=== PATIENT | female | born 1955 | race African-American/Black ===

== ENCOUNTER 2017-02-22 20:10 | Emergency (ER) | payer MEDICARE, MEDICAID ==
[~2017-02-22] VITALS: Ht 157.5 cm; Wt 105.2 kg
[~2017-02-22 20:10] MED LIST: ALPR0.5T PO; CHOL200027 PO; CYCL10TA2 PO; ESOM40CA PO; EZET10TA3 PO; LEVO75TA5 PO; LISI40TA PO; METF-620 PO; PHEN37.568 PO; POTA10TA12 PO; TRIA1TAB3 PO
--- NOTE | 2017-02-22 21:35 | RAD ---
CT HEAD AND CERVICAL SPINE WO dated 02/22/2017 8:38 PM History: Fell backwards and hit head, and tingling, neck pain Technique: Noncontrast CT imaging was performed of the head and cervical spine. Multiplanar reconstruction images are submitted. Exposure: One or more of the following individualized dose reduction techniques were utilized for this examination: 1. Automated exposure control 2. Adjustment of the mA and/or kV according to patient size 3. Use of iterative reconstruction technique. Head CT Comparison: None Findings: No acute extra-axial or parenchymal hemorrhage is identified. There is no significant intra-axial mass effect, midline shift, or extra-axial fluid collection. The christian-white differentiation of the major vascular territories is preserved. The ventricles, sulci, and cisterns are within normal limits in size and configuration. The mastoid air cells and the visualized paranasal sinuses are aerated. There is no significant focal calvarial abnormality. Impression: 1. No acute intracranial abnormality is identified. Cervical spine CT Comparison: None Findings: No acute cervical spine fracture is identified. Vertebral body stature and AP alignment are within normal limits. Atlanto-axial distance is within normal limits. There is appropriate alignment of lateral masses of C1 relative to C2. Occipital condylar-C1 relationship is maintained. There is advanced degenerative disc disease C3-4 and C5-C6, to a somewhat lesser degree C4-5 and C2-3. There is spondylosis at the same levels. There is likely mild spinal stenosis greatest at C3-4 and C5-C6. There is moderate narrowing of the right C4-5 neural foramen, also moderate severe right and moderate left C5-C6 neural foramina compromise in part from uncovertebral degenerative change. Impression: 1. No acute cervical spine fracture is identified. 2. There is multilevel cervical degenerative disc disease and spondylosis greatest C2-3 to C5-C6, likely at least mild spinal stenosis greatest at C3-4 and C5-C6. There is uncovertebral degenerative change which contributes to neural foramina compromise greatest on the right at C4-5 and bilaterally at C5-C6. Electronically signed by: Alexandre Weathers MD (02/22/2017 9:32 PM)
--- NOTE | 2017-02-22 22:17 | PHYS DOC ---
Past Medical History Past Medical History: Anxiety, Diabetes-Type II, GERD, High Cholesterol, Hypertension, Hypothyroid, Urolithiasis, Other Additional Past Medical Histor: TONYA Past Surgical History: Tubal ligation Additional Past Surgical Histo: THYROIDECTOMY, PARTIAL HYST, HERNIA Alcohol Use: None Drug Use: None Adult General Chief Complaint Chief Complaint: HEADACHE HPI HPI Patient is a 61 year old female with history of diabetes type 2, hypertension, chronic back pain, sciatica, anxiety, who presents with 9 out of 10 posterior head and neck pain that began after she fell. Patient states she was ambulating towards a door when she tripped and fell. Patient denies any loss of consciousness. She states she hit her head on a small chest. Patient denies taking any aspirin or blood thinners. Review of Systems Review of Systems Constitutional: Denies fever or chills [] Eyes: Denies change in visual acuity, redness, or eye pain [] HENT: Denies nasal congestion or sore throat [] Respiratory: Denies cough or shortness of breath [] Cardiovascular: No additional information not addressed in HPI [] GI: Denies abdominal pain, nausea, vomiting, bloody stools or diarrhea [] : Denies dysuria or hematuria [] Musculoskeletal: Posterior neck pain Integument: Denies rash or skin lesions [] Neurologic: Posterior head pain Endocrine: Denies polyuria or polydipsia [] Allergies Allergies Allergies Coded Allergies Type Severity Reaction Last Updated Verified prednisone Adverse Reaction Intermediate 01/19/15 Yes Physical Exam Physical Exam Constitutional: Well developed, well nourished, no acute distress, non-toxic appearance. [] HENT: Normocephalic, atraumatic, bilateral external ears normal, oropharynx moist, no oral exudates, nose normal. [] Eyes: PERRLA, EOMI, conjunctiva normal, no discharge. [] Neck: C-collar present. Normal range of motion, diffuse paraspinal muscle tenderness to posterior bilateral spine, no midline cervical spine tenderness, supple, no stridor. [] Cardiovascular:Heart rate regular rhythm, no murmur [] Lungs & Thorax: Bilateral breath sounds clear to auscultation [] Abdomen: Bowel sounds normal, soft, no tenderness, no masses, no pulsatile masses. [] Skin: Warm, dry, no erythema, no rash. [] Back: No tenderness, no CVA tenderness. [] Extremities: No tenderness, no cyanosis, no clubbing, ROM intact, no edema. [] Neurologic: Alert and oriented X 3, normal motor function, normal sensory function, no focal deficits noted. Cranial nerves II through XII intact Psychologic: Affect normal, judgement normal, mood normal. [] Current Patient Data Vital Signs Vital Signs Date Time Temp Pulse Resp B/P (MAP) Pulse Ox O2 Delivery O2 Flow Rate FiO2 02/22/17 20:42 98.2 90 16 167/92 (117) 95 Room Air 98.2 EKG EKG [] Radiology/Procedures Radiology/Procedures []PROCEDURE: CT HEAD AND CERVICAL SPINE WO CT HEAD AND CERVICAL SPINE WO dated 02/22/2017 8:38 PM History: Fell backwards and hit head, and tingling, neck pain Technique: Noncontrast CT imaging was performed of the head and cervical spine. Multiplanar reconstruction images are submitted. Exposure: One or more of the following individualized dose reduction techniques were utilized for this examination: 1. Automated exposure control 2. Adjustment of the mA and/or kV according to patient size 3. Use of iterative reconstruction technique. Head CT Comparison: None Findings: No acute extra-axial or parenchymal hemorrhage is identified. There is no significant intra-axial mass effect, midline shift, or extra-axial fluid collection. The christian-white differentiation of the major vascular territories is preserved. The ventricles, sulci, and cisterns are within normal limits in size and configuration. The mastoid air cells and the visualized paranasal sinuses are aerated. There is no significant focal calvarial abnormality. Impression: 1. No acute intracranial abnormality is identified. Cervical spine CT Comparison: None Findings: No acute cervical spine fracture is identified. Vertebral body stature and AP alignment are within normal limits. Atlanto-axial distance is within normal limits. There is appropriate alignment of lateral masses of C1 relative to C2. Occipital condylar-C1 relationship is maintained. There is advanced degenerative disc disease C3-4 and C5-C6, to a somewhat lesser degree C4-5 and C2-3. There is spondylosis at the same levels. There is likely mild spinal stenosis greatest at C3-4 and C5-C6. There is moderate narrowing of the right C4-5 neural foramen, also moderate severe right and moderate left C5-C6 neural foramina compromise in part from uncovertebral degenerative change. Impression: 1. No acute cervical spine fracture is identified. 2. There is multilevel cervical degenerative disc disease and spondylosis greatest C2-3 to C5-C6, likely at least mild spinal stenosis greatest at C3-4 and C5-C6. There is uncovertebral degenerative change which contributes to neural foramina compromise greatest on the right at C4-5 Course & Med Decision Making Course & Med Decision Making Pertinent Labs and Imaging studies reviewed. (See chart for details) Patient is in the ED with posterior head pain and neck pain after falling. Does not loss of consciousness. CT of the head is negative for any acute findings. CT of the neck is negative for any acute findings but noted for DJD of the neck. Patient to be discharged with proper return precautions including the need to return to the ED if she has uncontrolled pain, uncontrolled nausea vomiting, excessive sleepiness. She has a PCP and can follow-up as an outpatient. She has pain medicine at home she can use as needed. Dragon Disclaimer Dragon Disclaimer This electronic medical record was generated, in whole or in part, using a voice recognition dictation system. Departure Departure Impression: Primary Impression: Fall from standing Additional Impressions: Closed head injury Acute cervical sprain DJD (degenerative joint disease) of cervical spine Disposition: 01 HOME, SELF-CARE Condition: STABLE Referrals: KARLEE AYALA Jr, MD (PCP) follow up with your own doctor Patient Instructions: Cervical Sprain, Head Injury, Adult Additional Instructions: You were seen after falling. Your CT of the neck and head have no acute findings. Take the prescribed medicines you have at home as needed for pain. Come back to the emergency room if symptoms worsen especially if you have any uncontrolled pain, uncontrolled nausea vomiting, excessive sleepiness, or confusion. Follow-up with your doctor next week. Problem Qualifiers Primary Impression: Fall from standing Encounter type: initial encounter Qualified Codes: W19.XXXA - Unspecified fall, initial encounter Additional Impressions: Closed head injury Encounter type: initial encounter Qualified Codes: S09.90XA - Unspecified injury of head, initial encounter Acute cervical sprain Encounter type: initial encounter Qualified Codes: S13.9XXA - Sprain of joints and ligaments of unspecified parts of neck, initial encounter DJD (degenerative joint disease) of cervical spine Spinal osteoarthritis complication: unspecified spinal osteoarthritis Qualified Codes: M47.812 - Spondylosis without myelopathy or radiculopathy, cervical region MUTRIO OSBORNE [employer] February 22, 2017 22:17
[2017-02-22 22:23] VITALS: BP 170/90
== END 2017-02-22 22:24 | disposition home or self-care (01) ==
LOC: ER 20:10
DX: S13.4XXA Sprain of ligaments of cervical spine, initial encounter (principal); S09.8XXA Other specified injuries of head, initial encounter; M19.90 Unspecified osteoarthritis, unspecified site; E11.9 Type 2 diabetes mellitus without complications; K21.9 Gastro-esophageal reflux disease without esophagitis; E78.00 Pure hypercholesterolemia, unspecified; G89.29 Other chronic pain; I10 Essential (primary) hypertension; E89.0 Postprocedural hypothyroidism; G47.33 Obstructive sleep apnea (adult) (pediatric); Z88.8 Allergy status to other drugs, medicaments and biological substances; W01.0XXA Fall on same level from slipping, tripping and stumbling without subsequent striking against object, initial encounter; Y93.89 Activity, other specified; Y99.8 Other external cause status; Y92.89 Other specified places as the place of occurrence of the external cause
CPT/HCPCS: 70450; 72125; 99284-25

== ENCOUNTER 2017-04-19 12:39 | Observation (INO) | payer MEDICARE, MEDICAID ==
[~2017-04-19] VITALS: Ht 160 cm; Wt 105.4 kg
[~2017-04-19 12:39] MED LIST changes: +EZET10TA18 PO; -EZET10TA3 PO; -PHEN37.568 PO; +PHEN37.598 PO
--- NOTE | 2017-04-19 13:08 | PHYS DOC ---
Past Medical History Past Medical History: Anxiety, Diabetes-Type II, GERD, High Cholesterol, Hypertension, Hypothyroid, Urolithiasis, Other Additional Past Medical Histor: TONYA Past Surgical History: Tubal ligation Additional Past Surgical Histo: THYROIDECTOMY, PARTIAL HYST, HERNIA Alcohol Use: None Drug Use: None Adult General Chief Complaint Chief Complaint: WEAKNESS/GENERALIZED HPI HPI Patient is a 61 year old -[place] female who presents with generalized weakness and right arm pain and weakness. She states on April 12 she had a steroid injection in her right shoulder and right arm and then about 4 days later she started having generalized weakness she becomes very sweaty when she is up walking around and her right arm feels weak. She states nothing she does makes it better or worse. She did try to take a Lasix pill from a friend because she felt like her legs were swollen about the same time that she got her steroid shot. She denies any chest pain shortness of breath. She states she' s been compliant with all of her medications. Review of Systems Review of Systems Constitutional: Denies fever or chills [] Eyes: Denies change in visual acuity, redness, or eye pain [] HENT: Denies nasal congestion or sore throat [] Respiratory: Denies cough or shortness of breath [] Cardiovascular: No additional information not addressed in HPI [] GI: Denies abdominal pain, nausea, vomiting, bloody stools or diarrhea [] : Denies dysuria or hematuria [] Musculoskeletal: Denies back pain or joint pain [] Integument: Denies rash or skin lesions [] Neurologic: Denies headache, focal weakness or sensory changes [] Endocrine: Denies polyuria or polydipsia [] Allergies Allergies Allergies Coded Allergies Type Severity Reaction Last Updated Verified prednisone Adverse Reaction Intermediate 01/19/15 Yes Physical Exam Physical Exam Constitutional: Well developed, well nourished, no acute distress, non-toxic appearance. [] HENT: Normocephalic, atraumatic, bilateral external ears normal, oropharynx moist, no oral exudates, nose normal. [] Eyes: PERRLA, EOMI, conjunctiva normal, no discharge. [] Neck: Normal range of motion, no tenderness, supple, no stridor. [] Cardiovascular:Heart rate regular rhythm, no murmur [] Lungs & Thorax: Bilateral breath sounds clear to auscultation [] Abdomen: Bowel sounds normal, soft, no tenderness, no masses, no pulsatile masses. [] Skin: Warm, dry, no erythema, no rash. [] Back: No tenderness, no CVA tenderness. [] Extremities: No tenderness, no cyanosis, no clubbing, ROM intact, no edema. 5 out of 5 right upper many, limited range of motion on external rotation, radial artery on the right upper extremities 2 out of 4. Neurologic: Alert and oriented X 3, normal motor function, normal sensory function, no focal deficits noted. [] Psychologic: Affect normal, judgement normal, mood normal. [] Current Patient Data Vital Signs Vital Signs Date Time Temp Pulse Resp B/P (MAP) Pulse Ox O2 Delivery O2 Flow Rate FiO2 04/19/17 14:30 62 22 201/97 (131) 97 04/19/17 13:30 Room Air 04/19/17 13:00 98.4 98.4 Lab Values Laboratory Tests Test 04/19/17 13:00 04/19/17 14:20 Urine Collection Type Unknown Urine Color Yellow Urine Clarity Clear Urine pH 7.5 Urine Specific [place] 1.015 Urine Protein Negative mg/dL (NEG-TRACE) Urine Glucose (UA) Negative mg/dL (NEG) Urine Ketones (Stick) Negative mg/dL (NEG) Urine Blood Negative (NEG) Urine Nitrite Negative (NEG) Urine Bilirubin Negative (NEG) Urine Urobilinogen Dipstick 0.2 mg/dL (0.2 mg/dL) Urine Leukocyte Esterase Negative (NEG) Urine RBC 0 /HPF (0-2) Urine WBC Occ /HPF (0-4) Urine Squamous Epithelial Cells Few /LPF Urine Bacteria Few /HPF (0-FEW) White Blood Count 6.9 x10^3/uL (4.0-11.0) Red Blood Count 4.19 x10^6/uL (3.50-5.40) Hemoglobin 13.0 g/dL (12.0-15.5) Hematocrit 39.5 % (36.0-47.0) Mean Corpuscular Volume 94 fL (79-100) Mean Corpuscular Hemoglobin 31 pg (25-35) Mean Corpuscular Hemoglobin Concent 33 g/dL (31-37) Red Cell Distribution Width 13.7 % (11.5-14.5) Platelet Count 287 x10^3/uL (140-400) Neutrophils (%) (Auto) 59 % (31-73) Lymphocytes (%) (Auto) 32 % (24-48) Monocytes (%) (Auto) 6 % (0-9) Eosinophils (%) (Auto) 3 % (0-3) Basophils (%) (Auto) 1 % (0-3) Neutrophils # (Auto) 4.0 x10^3uL (1.8-7.7) Lymphocytes # (Auto) 2.2 x10^3/uL (1.0-4.8) Monocytes # (Auto) 0.4 x10^3/uL (0.0-1.1) Eosinophils # (Auto) 0.2 x10^3/uL (0.0-0.7) Basophils # (Auto) 0.0 x10^3/uL (0.0-0.2) Prothrombin Time 13.4 SEC (11.7-14.0) Prothrombin Time INR 1.1 (0.8-1.1) Sodium Level 142 mmol/L (136-145) Potassium Level 4.1 mmol/L (3.5-5.1) Chloride Level 103 mmol/L (98-107) Carbon Dioxide Level 31 mmol/L (21-32) Anion Gap 8 (6-14) Blood Urea Nitrogen 18 mg/dL (7-20) Creatinine 1.1 mg/dL (0.6-1.0) H Estimated GFR (Cockcroft-Gault) 60.7 Glucose Level 96 mg/dL (70-99) Calcium Level 9.7 mg/dL (8.5-10.1) Magnesium Level 2.0 mg/dL (1.8-2.4) Total Bilirubin 0.6 mg/dL (0.2-1.0) Direct Bilirubin 0.1 mg/dL (0.0-0.2) Aspartate Amino Transferase (AST) 13 U/L (15-37) L Alanine Aminotransferase (ALT) 14 U/L (14-59) Alkaline Phosphatase 74 U/L (46-116) Creatine Kinase 57 U/L (26-192) Creatine Kinase MB (Mass) < 0.5 ng/mL (0.0-3.6) Creatine Kinase MB Relative Index 0.9 % (0-4) Troponin I Quantitative < 0.017 ng/mL (0.000-0.055) EW-Kow-W-Type Natriuretic Peptide 123 pg/mL (0-124) Total Protein 6.7 g/dL (6.4-8.2) Albumin 3.5 g/dL (3.4-5.0) Lipase 392 U/L (73-393) Thyroid Stimulating Hormone (TSH) 1.122 uIU/mL (0.358-3.74) Laboratory Tests 04/19/17 14:20 Laboratory Tests 04/19/17 14:20 EKG EKG EKG shows sinus rhythm rate of [address] elevations, T-wave inversions noted in lead 3, left axis deviation noted, QTC 378 ms, as interpreted by me. Radiology/Procedures Radiology/Procedures [facility] [address] [place] [address] IMAGING REPORT Signed PATIENT: JANESSA VARELA ACCOUNT: [id number] : 1955 LOCATION: ER AGE: 61 SEX: F EXAM STATUS: REG ER ORD. PHYSICIAN: BRENDA GARCIA MD REASON: weakness PROCEDURE: PORTABLE CHEST 1V Janessa Varela. Chest x-ray. 04/19/2017. Time 1319. A single view of the chest was obtained and is compared to an examination 08/03/2015. Indication weakness. Protocol study. Heart size is at the upper limits of normal. There is no congestive heart failure. There is no focal infiltrate significant pleural fluid collection or pneumothorax. Overall a significant change compared to the previous exam is not seen IMPRESSION: No acute process. No significant change DICTATED and SIGNED BY: FATOUMATA MUNOZ MD DATE: 04/19/17 8121 CC: BRENDA GARCIA MD; KARLEE AYALA Jr, MD ~ Impressions: Emergency urgency Utilized weakness Course & Med Decision Making Course & Med Decision Making Pertinent Labs and Imaging studies reviewed. (See chart for details) Patient is outside of any window for her chief complaint of right arm weakness this is been going on for greater than 4 days. I do not appreciate any weakness. It's more limited range of motion that she complains of. She has elevated blood pressure systolics of 201. 2 doses of IV hydralazine is been ordered. Her labs show any acute concerns. She's being admitted to hospitalists for weakness. Interim orders have been written. Critical care time: 35 minutes critical care time was on this patient excluding procedures. Dragon Disclaimer Dragon Disclaimer This electronic medical record was generated, in whole or in part, using a voice recognition dictation system. Departure Departure Impression: Primary Impression: Hypertensive urgency Disposition: ADMITTED INPATIENT Admitting Physician: Other Condition: STABLE Referrals: KARLEE AYALA Jr, MD (PCP) BRENDA GARCIA MD Apr 19, 2017 13:08
[2017-04-19 13:28] LABS: BILIRUBIN,URINE NEGATIVE (NEG); GLUCOSE,URINE NEGATIVE (NEG); NITRITE,URINE NEGATIVE (NEG); PH,URINE 7.5; PROTEIN,URINE NEGATIVE (NEG-TRACE); UROBILINOGEN,URINE 0.2 mg/dL (0.2 mg/dL)
--- NOTE | 2017-04-19 13:54 | RAD ---
Tracee Salas. Chest x-ray. 04/19/2017. Time 1319. A single view of the chest was obtained and is compared to an examination 08/03/2015. Indication weakness. Protocol study. Heart size is at the upper limits of normal. There is no congestive heart failure. There is no focal infiltrate significant pleural fluid collection or pneumothorax. Overall a significant change compared to the previous exam is not seen IMPRESSION: No acute process. No significant change
[2017-04-19 14:02] LABS: BACTERIA,URINE FEW /HPF (0-FEW); RBC,URINE 0 /HPF (0-2); SQUAMOUS EPITHELIAL CELL,UR FEW /LPF; WBC,URINE OCC /HPF (0-4)
[2017-04-19 14:29] LABS: BASO % 1 % (0-3); EOS % 3 % (0-3); HEMATOCRIT 39.5 % (36.0-47.0); LYMPH # 2.2 x10^3/uL (1.0-4.8); LYMPH % 32 % (24-48); MEAN CORPUSCULAR HEMOGLOBIN 31 pg (25-35); MEAN CORPUSCULAR HGB CONC 33 g/dL (31-37); MEAN CORPUSCULAR VOLUME 94 fL (79-100); MONO % 6 % (0-9); NEUT % 59 % (31-73); PLATELET COUNT 287 x10^3/uL (140-400); RED BLOOD COUNT 4.19 x10^6/uL (3.50-5.40); RED CELL DISTRIBUTION WIDTH 13.7 % (11.5-14.5); WHITE BLOOD COUNT 6.9 x10^3/uL (4.0-11.0)
[2017-04-19 14:38] LABS: INR 1.1 (0.8-1.1); PROTHROMBIN TIME PATIENT 13.4 SEC (11.7-14.0)
[2017-04-19 14:47] LABS: CALCIUM 9.7 mg/dL (8.5-10.1); CREATININE 1.1 mg/dL (0.6-1.0); GFR 60.7; POTASSIUM 4.1 mmol/L (3.5-5.1)
[2017-04-19 14:52] LABS: ALBUMIN 3.5 g/dL (3.4-5.0); DIRECT BILIRUBIN 0.1 mg/dL (0.0-0.2); TOTAL BILIRUBIN 0.6 mg/dL (0.2-1.0); TOTAL PROTEIN 6.7 g/dL (6.4-8.2)
[2017-04-19 14:59] LABS: CREATINE KINASE 57 U/L (26-192)
[2017-04-19 15:00] LABS: CKMB MASS < 0.5 ng/mL (0.0-3.6)
--- NOTE | 2017-04-19 15:21 | EKG ---
[facility] [address] [place] [address] Test Date: 2017-04-19 Test Time: 13:11:17 Pat Name: JANESSA VARELA Department: Room: Gender: F Harness Inspector: : 1955 Requested By: BRENDA GARCIA Order Number: [id number] Reading MD: Measurements Intervals [place] Rate: 70 P: 48 NM: 164 QRS: -14 QRSD: 78 T: -1 QT: 348 QTc: 378 Interpretive Statements SINUS RHYTHM LEFTWARD AXIS QRS(T) CONTOUR ABNORMALITY CANNOT RULE OUT ANTEROSEPTAL MYOCARDIAL DAMAGE RI6.01 Unconfirmed report No previous ECG available for comparison
[2017-04-19] MEDS: hydrALAZINE 20 MG/ML VIAL. IVP ONE ×2 (15:29→16:30)
--- NOTE | 2017-04-19 15:43 | RAD ---
Indication right arm weakness. Noncontrast images of the head were obtained. Note is made of a previous examination just under 2 months ago. The calvarium appears unremarkable. The visualized paranasal sinuses appear unremarkable. There is no subdural or epidural hematoma. There is no mass or midline shift. No hemorrhage is seen. Acute finding is not apparent. A significant change compared to the previous exam is not seen. IMPRESSION: No acute finding seen at [facility] Compliance Statement: One or more of the following individualized dose reduction techniques were utilized for this examination: 1. Automated exposure control 2. Adjustment of the mA and/or kV according to patient size 3. Use of iterative reconstruction technique
[2017-04-19] MEDS ORDERED: hydrALAZINE 20 MG/ML VIAL. IVP ONE (15:45)
[2017-04-19] MEDS ORDERED: ONDANSETRON PF 4 MG/2 ML VIAL. IV PRN (16:15)
[2017-04-19 17:23] VITALS: BP 188/92
[2017-04-19 17:24] VITALS: BP 188/92
[2017-04-19] MEDS ORDERED: DEXTROSE 50% 25 GM / 50ML DISP.SYRIN. IV PRN (17:45)
[2017-04-19] MEDS ORDERED: ALPRAZolam 0.5 MG TABLET PO PRN (17:45)
[2017-04-19] MEDS ORDERED: CYCLOBENZAPRINE 10 MG TABLET. PO PRN (17:45)
[2017-04-19] MEDS: METHYL SALICYLATE/MENTHOL TOPICAL OINTMENT 29GM TUBE. TP SCH ×2 (17:52→21:44)
[2017-04-19] MEDS: amLODIPine BESYLATE 5 MG TABLET PO SCH (17:52)
--- NOTE | 2017-04-19 19:01 | HP ---
ADMIT DATE: 04/19/2017 CHIEF COMPLAINT: Arm pain, hypertensive urgency. HISTORY OF PRESENT ILLNESS: The patient is a 61-year-old -[place] woman with past medical history of hypertension, diabetes, osteoarthritis for which she is receiving injections and pain medications from the pain clinic. She presented to the Emergency Room today with right upper extremity pain in her proximal arm after she had received an injection into her shoulder joint just a couple of days ago. Initially pain was actually well controlled now. Her arm is quite achy. She also had noted some sweating at home with relatively little activity and she is not feeling well in general and decided to come to the Emergency Room. Here, no local findings were evident. However, her blood pressure initially was over 200 with the difficulty in controlling, the patient was admitted. PAST MEDICAL HISTORY: Diabetes, hypertension, hyperlipidemia, hypothyroidism, anxiety and GERD. PAST SURGICAL HISTORY: She is status post thyroidectomy and hysterectomy. SOCIAL HISTORY: No toxic habits, lives with her family. FAMILY HISTORY: Positive for CAD. ALLERGIES: PREDNISONE. MEDICATIONS: MAR reconciled with home medications. REVIEW OF SYSTEMS: Positive as per HPI. She denies any fevers, chills, any other focal symptoms save for the arm pain. PHYSICAL EXAMINATION: VITAL SIGNS: From today show a blood pressure of initially at 211/102, currently at 180/92. GENERAL: This is a morbidly obese -[place] woman, alert and oriented, no acute distress. HEENT: Shows no scleral icterus. Oral mucosa is pink and moist. NECK: Supple. LUNGS: Clear to auscultation bilaterally. HEART: Has regular rate and rhythm. ABDOMEN: Has positive bowel sounds, soft, nontender. EXTREMITIES: Show no edema. SKIN: Warm, soft and dry without any rash. NEUROLOGIC: She appears grossly intact. LABORATORY DATA: CBC with a WBC of 6.9, hemoglobin 13, platelets of 287. Chemistries with a BUN and creatinine of 18 and 1.1, which is essentially her baseline. Electrolytes within normal limits. LFTs normal, cardiac enzymes normal. IMAGING: Head CT in the Emergency Room shows no acute findings noted the chest x-ray. ASSESSMENT AND PLAN: The patient is a 61-year-old woman, who presents with arm pain after a steroid injection. I suspect that this is neuropathy from the injection. We will treat with BenGay and her home medications for pain. More importantly is the incidental finding of hypertensive urgency. She has been given hydralazine in the Emergency Room with some improvement. We will start her on Norvasc tonight. Continue the IV hydralazine p.r.n. and continue home medications including lisinopril. She does have diabetes and is on medication. Blood sugar in the Emergency Room was actually within normal limits. We will obtain insulin sliding scale, monitoring in addition to her home medications. For other medical issues including gastroesophageal reflux disease and hypothyroidism, we will continue her home medications. Should prolonged hospitalization be required, we will start her on Lovenox tomorrow2 for DVT prophylaxis. GEOVANI YUAN MD DR: UR/nts JOB#: [id number] / [id number] ASHLY
[2017-04-19 19:15] VITALS: BP 181/89
[2017-04-19] MEDS ORDERED: METF500T4 PO (21:47)
[2017-04-19] MEDS ORDERED: hydrALAZINE 20 MG/ML VIAL. IVP PRN (22:15)
[2017-04-19 23:15] VITALS: BP 151/82
--- NOTE | 2017-04-20 01:08 | ACF ---
Admission Forms Criteria HYPERTENSION Clinical Indications for Admission to Inpatient Care ( Place "X" for any and all applicable criteria): Admission is indicated for 1 or more of the following(1)(2)(3)(4)(5)(6)(7)(8)(9) (10): [ ]I. Hypertensive emergency, with evidence of acute and progressing target organ disease as indicated by 1 or more of the following: [ ]a) Hypertensive encephalopathy (eg, confusion, altered mental status) [ ]b) Cerebral infarction [ ]c) Intracranial hemorrhage [ ]d) Myocardial ischemia or infarction [ ]e) Heart failure (eg. Pulmonary edema) [ ]f) Aortic dissection [ ]g) Increased creatinine (new) with reduction of more than 50% in estimated glomerular filtration rate from baseline [ ]h) Seizure [ ]i) Papilledema [ ]j) Retinal hemorrhage [ ]k) Microangiopathic hemolytic anemia [ ]l) Other significant finding secondary to hypertension [ ]II. Adrenergic or sympathomimetic crisis (eg, severe hypertension due to pheochromocytoma crisis, cocaine or amphetamine intoxication, or clonidine withdrawal) [X]III. Severe hypertension (SBP greater than 180 mmHg or DBP greater than 110 mmHg or greater than the 95th percentile for age, gender, and height in pediatric patients) that cannot be controlled (eg, to SBP less than 160 mmHg and DBP less than 100 mmHg in adults) by treatment with oral medication in emergency department or observation care Extended stay beyond goal length of stay may be needed for(11)(12)(13): [ ]a) Persistent hypertensive encephalopathy [ ]b) Continuation of pulmonary edema [ ]c) Recurring or persistent severe hypertension [ ]d) Target organ damage (eg, angina, stroke, aortic dissection) The original [employer] content created by [employer] has been revised. The portions of the content which have been revised are identified through the use of italic text, and [employer] [facility] has neither reviewed nor approved the modified material. All other unmodified content is copyright [employer] Please see references footnoted in the original [employer] [facility] edition 2014 Admission Criteria Met?: Yes CRUZ ARANA Apr 20, 2017 01:08
[2017-04-20] MEDS ORDERED: ACETAMINOPHEN 325 MG TABLET. PO PRN (01:15)
[2017-04-20 03:10] VITALS: BP 148/80
[2017-04-20 05:58] LABS: BASO # 0.1 x10^3/uL (0.0-0.2); BASO % 1 % (0-3); EOS % 2 % (0-3); HEMATOCRIT 40.1 % (36.0-47.0); HEMOGLOBIN 13.2 g/dL (12.0-15.5); LYMPH # 3.2 x10^3/uL (1.0-4.8); LYMPH % 38 % (24-48); MEAN CORPUSCULAR HEMOGLOBIN 31 pg (25-35); MEAN CORPUSCULAR HGB CONC 33 g/dL (31-37); MEAN CORPUSCULAR VOLUME 94 fL (79-100); MONO % 7 % (0-9); NEUT % 53 % (31-73); PLATELET COUNT 325 x10^3/uL (140-400); RED BLOOD COUNT 4.27 x10^6/uL (3.50-5.40); RED CELL DISTRIBUTION WIDTH 14.1 % (11.5-14.5); WHITE BLOOD COUNT 8.4 x10^3/uL (4.0-11.0)
[2017-04-20 06:46] LABS: CALCIUM 8.8 mg/dL (8.5-10.1); GFR 67.8; POTASSIUM 3.7 mmol/L (3.5-5.1)
[2017-04-20] MEDS ORDERED: LEVOTHYROXINE 75 MCG TABLET PO SCH (07:30)
[2017-04-20] MEDS ORDERED: PANTOPRAZOLE 40 MG TABLET.DR. PO SCH (07:30)
[2017-04-20 07:36] VITALS: BP 119/73
[2017-04-20] MEDS ORDERED: metFORMIN 500 MG TABLET PO SCH (08:00)
[2017-04-20] MEDS: INSULIN ASPART 300 UNITS/3 ML INSULN.PEN SQ SCH ×2 (08:00→12:14)
[2017-04-20] MEDS ORDERED: LISINOPRIL 40 MG TABLET. PO SCH (09:00)
[2017-04-20] MEDS ORDERED: EZETIMIBE 10 MG TABLET. PO SCH (09:00)
[2017-04-20] MEDS ORDERED: TRIAMTERENE/HCTZ 37.5/25MG TABLET. PO SCH (09:00)
[2017-04-20] MEDS ORDERED: POTASSIUM CHLORIDE 10 MEQ TABLET.ER. PO SCH (09:00)
[2017-04-20] MEDS ORDERED: CHOLECALCIFEROL (VITAMIN D3) 1,000 UNIT TABLET PO SCH (09:00)
[2017-04-20] MEDS: amLODIPine BESYLATE 5 MG TABLET PO SCH (09:06)
[2017-04-20] MEDS: METHYL SALICYLATE/MENTHOL TOPICAL OINTMENT 29GM TUBE. TP SCH ×2 (09:08→13:26)
[2017-04-20 11:35] VITALS: BP 146/86
[2017-04-20 13:18] LABS: % EOS 2 % (0-5)
[2017-04-20 13:19] LABS: PLT ESTIMATE ADEQUATE (ADEQUATE)
[2017-04-20 13:30] VITALS: BP 153/80
--- NOTE | 2017-04-20 13:43 | PDOC ---
GEOVANI YUAN MD Apr 20, 2017 13:43
[2017-04-20] MEDS ORDERED: AMLO5TAB2 PO (15:25)
[2017-04-20 15:34] VITALS: BP 137/87
--- NOTE | 2017-04-21 00:46 | DS ---
DATE OF DISCHARGE: 04/20/2017 CHIEF COMPLAINT: Arm pain, hypertensive urgency. HOSPITAL COURSE: This is a 61-year-old -[place] woman with past medical history of hypertension, diabetes, osteoarthritis, who presented to the Emergency Room with arm pain. She had had an injection to her right shoulder for osteoarthritis and a couple of days later developed right upper arm pain. In the Emergency Room, she was found with hypertensive urgency and promptly admitted. Blood pressure actually was brought under control fairly easily with her home medications and the addition of Norvasc. Her arm pain was addressed with BenGay and her home medications with good result. She was ready for discharge on the . PHYSICAL EXAMINATION: VITAL SIGNS: Blood pressure of 137/87, heart rate at 80, respiratory rate at 18. She is afebrile. GENERAL: This is a morbidly obese, 61-year-old -[place] woman, alert and oriented, in no acute distress. LUNGS: Clear. HEART: Regular rate and rhythm. ABDOMEN: Has positive bowel sounds, soft, nontender. EXTREMITIES: Show no edema. DISCHARGE DATE: 04/20/2017. DISCHARGE DIAGNOSES: Arm pain and hypertensives urgency. DISCHARGE DISPOSITION: To home. DISCHARGE CONDITION: Improved. DISCHARGE MEDICATIONS: Please refer to MAR. DISCHARGE INSTRUCTIONS: The patient will follow up with her primary care physician in 1-2 weeks. GEOVANI YUAN MD DR: UR/nts JOB#: [id number] / [id number] KARLEE Bae MD
== END 2017-04-20 16:00 | disposition home or self-care (01) ==
LOC: ER 12:39 → 6 SOUTH 14:51
PROVIDERS: ADMIT Internal Medicine Hematology & Oncology; ATTEND Internal Medicine Hematology & Oncology
DX: M79.601 Pain in right arm (principal); I16.0 Hypertensive urgency; E11.9 Type 2 diabetes mellitus without complications; E78.00 Pure hypercholesterolemia, unspecified; E89.0 Postprocedural hypothyroidism; G47.33 Obstructive sleep apnea (adult) (pediatric); I10 Essential (primary) hypertension; K21.9 Gastro-esophageal reflux disease without esophagitis; M19.90 Unspecified osteoarthritis, unspecified site; Z87.442 Personal history of urinary calculi
CPT/HCPCS: 36415; 70450; 71010; 80048; 80076; 81001; 82553; 82962; 83690; 83735; 83880; 84443; 84484; 85007; 85027; 85610; 93005; 96374; 99285; G0378; J0360; G0379; A6539

== ENCOUNTER 2018-12-17 13:29 | Emergency (ER) | payer MEDICARE, MEDICAID ==
[~2018-12-17] VITALS: Ht 160 cm; Wt 105.2 kg
[~2018-12-17 13:29] MED LIST changes: +AMLO5TAB10 PO; +LISI-130 PO; -LISI40TA PO; -METF-620 PO; +METF10007 PO; +METF500T16 PO
[2018-12-17 15:20] VITALS: BP 134/70
--- NOTE | 2018-12-17 15:38 | PHYS DOC ---
Past Medical History Past Medical History: Anxiety, Arthritis, Diabetes-Type II, GERD, High Cholesterol, Hypertension, Hypothyroid, Urolithiasis, Other Additional Past Medical Histor: TONYA-uses CPAP, ciatica Past Surgical History: Cholecystectomy, Tubal ligation Additional Past Surgical Histo: THYROIDECTOMY, PARTIAL HYST, HERNIA Alcohol Use: None Drug Use: None Adult General Chief Complaint Chief Complaint: ALLERGIC REACTION HPI HPI Patient is a 63 year old went to see her doctor today for acid reflux problem and for her blood pressure problem. Patient is on two different medications for here blood pressure. Patient was given a GI COCKTAIL IN THE CLINIC AND .2 MG CLONIDINE PO. Patient has never taken CLONIDINE IN THE PAST. Patient was allowed to stay in the clinic for observation. Her doctor went to lunch but when she came back , found patient to be very drownsy so she was told to come to the ER FOR EVALUATION. She denies any trouble breathing, no trouble swallowing, no trouble TALKING, NO RASH OR ITCHING. Patient denies any chest pain, no abdominal pain, no nausea vomiting. Review of Systems Review of Systems Constitutional: Denies fever or chills [] Eyes: Denies change in visual acuity, redness, or eye pain [] HENT: Denies nasal congestion or sore throat [] Respiratory: Denies cough or shortness of breath [] Cardiovascular: No additional information not addressed in HPI [] GI: Denies abdominal pain, nausea, vomiting, bloody stools or diarrhea [] : Denies dysuria or hematuria [] Musculoskeletal: Denies back pain or joint pain [] Integument: Denies rash or skin lesions [] Neurologic: Denies headache, focal weakness or sensory changes. FEELING VERY DROWNSY. Endocrine: Denies polyuria or polydipsia [] All other systems were reviewed and found to be within normal limits, except as documented in this note. Allergies Allergies Allergies Coded Allergies Type Severity Reaction Last Updated Verified prednisone Adverse Reaction Intermediate 01/19/15 Yes Physical Exam Physical Exam Constitutional: Well developed, well nourished, no acute distress, non-toxic appearance. [] HENT: Normocephalic, atraumatic, bilateral external ears normal, oropharynx moist, no oral exudates, nose normal. [] Eyes: PERRLA, EOMI, conjunctiva normal, no discharge. [] Neck: Normal range of motion, no tenderness, supple, no stridor. [] Cardiovascular:Heart rate regular rhythm, no murmur [] Lungs & Thorax: Bilateral breath sounds clear to auscultation [] Abdomen: Bowel sounds normal, soft, no tenderness, no masses, no pulsatile masses. [] Skin: Warm, dry, no erythema, no rash. [] Back: No tenderness, no CVA tenderness. [] Extremities: No tenderness, no cyanosis, no clubbing, ROM intact, no edema. [] Neurologic: Alert and oriented X 3, normal motor function, normal sensory function, no focal deficits noted. [] Psychologic: Affect normal, judgement normal, mood normal. [] Current Patient Data Vital Signs Vital Signs Date Time Temp Pulse Resp B/P (MAP) Pulse Ox O2 Delivery O2 Flow Rate FiO2 12/17/18 15:20 74 134/70 (91) 98 Room Air 12/17/18 13:51 98.2 18 98.2 EKG EKG [] Radiology/Procedures Radiology/Procedures [] Course & Med Decision Making Course & Med Decision Making Pertinent Labs and Imaging studies reviewed. (See chart for details) Patient was observed in the ER for 2.5 hours, she was doing better, her blood pressure was normalized. Clonidine caused her to be drownzy. She was told to stop taking clonidine. She will need to call her doctor today for a different blood pressure medication. Dragon Disclaimer Dragon Disclaimer This electronic medical record was generated, in whole or in part, using a voice recognition dictation system. Departure Departure Impression: Primary Impression: Medication adverse effect Disposition: HOME, SELF-CARE Condition: IMPROVED Referrals: UNKNOWN PCP NAME (PCP) please call your doctor today so that you can have another medication for your blood pressure. DO NOT TAKE CLONIDINE ANYMORE. Patient Instructions: Drug Allergy CINTIA CURIEL DO Dec 17, 2018 15:38
== END 2018-12-17 15:59 | disposition home or self-care (01) ==
LOC: ER 13:29
DX: K21.9 Gastro-esophageal reflux disease without esophagitis (principal); I10 Essential (primary) hypertension; F41.9 Anxiety disorder, unspecified; T46.5X5A Adverse effect of other antihypertensive drugs, initial encounter; M19.90 Unspecified osteoarthritis, unspecified site; E11.9 Type 2 diabetes mellitus without complications; E78.00 Pure hypercholesterolemia, unspecified; G47.33 Obstructive sleep apnea (adult) (pediatric); Z90.49 Acquired absence of other specified parts of digestive tract; Z98.51 Tubal ligation status; E89.0 Postprocedural hypothyroidism; Z88.8 Allergy status to other drugs, medicaments and biological substances; Y92.89 Other specified places as the place of occurrence of the external cause
CPT/HCPCS: 99283

== ENCOUNTER 2019-10-25 07:38 | Emergency (ER) | payer MEDICARE, MEDICAID ==
[~2019-10-25] VITALS: Ht 160 cm; Wt 115.9 kg
[~2019-10-25 07:38] MED LIST changes: +AMLO10TA8 PO; -EZET10TA18 PO; +EZET10TA20 PO
--- NOTE | 2019-10-25 08:18 | RAD ---
PORTABLE CHEST 1V History: Chest pain hypertension. Headache. Comparison: April 17, 2019 Findings: No consolidation or pleural effusion. Normal heart size. No pneumothorax. Impression: 1. No acute cardiopulmonary process. Electronically signed by: Pal Dumont DO (10/25/2019 8:16 AM) [facility]
[2019-10-25 08:19] LABS: BASO % 1 % (0-3); EOS # 0.2 x10^3/uL (0.0-0.7); EOS % 4 % (0-3); HEMATOCRIT 36.3 % (36.0-47.0); HEMOGLOBIN 12.4 g/dL (12.0-15.5); LYMPH % 36 % (24-48); MEAN CORPUSCULAR HEMOGLOBIN 31 pg (25-35); MEAN CORPUSCULAR HGB CONC 34 g/dL (31-37); MEAN CORPUSCULAR VOLUME 92 fL (79-100); MONO # 0.4 x10^3/uL (0.0-1.1); MONO % 7 % (0-9); NEUT % 53 % (31-73); PLATELET COUNT 271 x10^3/uL (140-400); RED BLOOD COUNT 3.94 x10^6/uL (3.50-5.40); RED CELL DISTRIBUTION WIDTH 13.4 % (11.5-14.5); WHITE BLOOD COUNT 5.6 x10^3/uL (4.0-11.0)
[2019-10-25 08:21] LABS: CALCIUM 9.2 mg/dL (8.5-10.1); GFR 67.1; POTASSIUM 3.5 mmol/L (3.5-5.1)
[2019-10-25 08:28] LABS: ALBUMIN 3.3 g/dL (3.4-5.0); MAGNESIUM 1.6 mg/dL (1.8-2.4); PROTHROMBIN TIME PATIENT 13.7 SEC (11.7-14.0); TOTAL BILIRUBIN 0.8 mg/dL (0.2-1.0); TOTAL PROTEIN 6.7 g/dL (6.4-8.2)
--- NOTE | 2019-10-25 08:36 | RAD ---
CT HEAD WO CONTRAST History: Headache Comparison: April 19, 2017 Technique: Noncontrast CT imaging was performed of the head. Exposure: One or more of the following individualized dose reduction techniques were utilized for this examination: 1. Automated exposure control 2. Adjustment of the mA and/or kV according to patient size 3. Use of iterative reconstruction technique. Findings: No acute extra-axial or parenchymal hemorrhage is identified. There is no significant intra-axial mass effect, midline shift, or extra-axial fluid collection. The christian-white differentiation of the major vascular territories is preserved. The ventricles, sulci, and cisterns are within normal limits in size and configuration. The mastoid air cells and the visualized paranasal sinuses are aerated. No acute calvarial abnormality is identified. Impression: 1. No acute intracranial abnormality is identified. Electronically signed by: Alexandre Weathers MD (10/25/2019 8:33 AM) [facility]
--- NOTE | 2019-10-25 09:03 | PHYS DOC ---
Past Medical History Past Medical History: Anxiety, Arthritis, Diabetes-Type II, GERD, High Cholesterol, Hypertension, Hypothyroid, Urolithiasis, Other Additional Past Medical Histor: TONYA-uses CPAP, ciatica, CHRONIC BACK PAIN Past Surgical History: Cholecystectomy, Tubal ligation Additional Past Surgical Histo: THYROIDECTOMY, PARTIAL HYST, HERNIA Alcohol Use: None Drug Use: None Adult General Chief Complaint Chief Complaint: CHEST PAIN HPI HPI Patient is a 64 year old female with history of hypertension, dyslipidemia, hypothyroidism, diabetes mellitus, anxiety, chronic back pain who presents via EMS with complaint of chest pain and headache. Patient complaining of in termittent episodes of substernal chest pain for the last 4 days that usually lasts for a few minutes and happens 3 or 4 times a day as a sharp pain with radiation to her shoulders and back and associated with shortness of breath without palpitation and nausea and dizziness. Patient rated her pain 8/10 and states she had the same chest pain previously. Patient states sometimes the pain getting worse with eating. Patient also of constant right-sided headache for the last 2 days as a burning pain without nausea, focal neuro deficit, double vision or blurred vision, head injury. Patient rated her headache 9/10 and states she took her hydrocodone and her pain getting better and coming back again. Review of Systems Review of Systems Constitutional: Denies fever or chills [] Eyes: Denies change in visual acuity, redness, or eye pain [] HENT: Denies nasal congestion or sore throat [] Respiratory: Denies cough or shortness of breath [] Cardiovascular: No additional information not addressed in HPI [] GI: Denies abdominal pain, nausea, vomiting, bloody stools or diarrhea [] : Denies dysuria or hematuria [] Musculoskeletal: Denies back pain or joint pain [] Integument: Denies rash or skin lesions [] Neurologic: Denies headache, focal weakness or sensory changes [] Endocrine: Denies polyuria or polydipsia [] All other systems were reviewed and found to be within normal limits, except as documented in this note. Current Medications Current Medications Current Medications Medications (Trade) Dose Ordered Sig/Erika Start Time Stop Time Status Last Admin Dose Admin Magnesium Oxide (Magnesium Oxide) 400 mg 1X ONCE 10/25/19 09:45 10/25/19 09:46 DC 10/25/19 09:26 400 MG Morphine Sulfate (Morphine Sulfate) 4 mg 1X ONCE 10/25/19 09:15 10/25/19 08:59 DC Allergies Allergies Allergies Coded Allergies Type Severity Reaction Last Updated Verified No Known Medication Allergies Allergy Unknown 10/25/19 Yes prednisone Adverse Reaction Intermediate 01/19/15 Yes Physical Exam Physical Exam Constitutional: Well developed, well nourished, mild distress, non-toxic appearance. [] HENT: Normocephalic, atraumatic. Eyes: PERRLA, EOMI, conjunctiva normal, no discharge. [] Neck: Normal range of motion, no tenderness, supple, no stridor. [] Cardiovascular:Heart rate regular rhythm, no murmur [] Lungs & Thorax: Bilateral breath sounds clear to auscultation, reproducible substernal pain [] Abdomen: Bowel sounds normal, soft, no tenderness, no masses, no pulsatile masses. [] Skin: Warm, dry, no erythema, no rash. [] Back: No tenderness, no CVA tenderness. [] Extremities: No tenderness, no cyanosis, no clubbing, ROM intact, no edema. [] Neurologic: Alert and oriented X 3, no focal deficits noted. [] Psychologic: Affect normal, judgement normal, mood normal. [] Current Patient Data Vital Signs Vital Signs Date Time Temp Pulse Resp B/P (MAP) Pulse Ox O2 Delivery O2 Flow Rate FiO2 10/25/19 09:40 65 18 133/73 (93) 98 Room Air 10/25/19 07:52 97.6 97.6 Lab Values Laboratory Tests Test 10/25/19 08:03 White Blood Count 5.6 x10^3/uL (4.0-11.0) Red Blood Count 3.94 x10^6/uL (3.50-5.40) Hemoglobin 12.4 g/dL (12.0-15.5) Hematocrit 36.3 % (36.0-47.0) Mean Corpuscular Volume 92 fL (79-100) Mean Corpuscular Hemoglobin 31 pg (25-35) Mean Corpuscular Hemoglobin Concent 34 g/dL (31-37) Red Cell Distribution Width 13.4 % (11.5-14.5) Platelet Count 271 x10^3/uL (140-400) Neutrophils (%) (Auto) 53 % (31-73) Lymphocytes (%) (Auto) 36 % (24-48) Monocytes (%) (Auto) 7 % (0-9) Eosinophils (%) (Auto) 4 % (0-3) H Basophils (%) (Auto) 1 % (0-3) Neutrophils # (Auto) 3.0 x10^3/uL (1.8-7.7) Lymphocytes # (Auto) 2.0 x10^3/uL (1.0-4.8) Monocytes # (Auto) 0.4 x10^3/uL (0.0-1.1) Eosinophils # (Auto) 0.2 x10^3/uL (0.0-0.7) Basophils # (Auto) 0.0 x10^3/uL (0.0-0.2) Prothrombin Time 13.7 SEC (11.7-14.0) Prothrombin Time INR 1.1 (0.8-1.1) Sodium Level 139 mmol/L (136-145) Potassium Level 3.5 mmol/L (3.5-5.1) Chloride Level 101 mmol/L (98-107) Carbon Dioxide Level 30 mmol/L (21-32) Anion Gap 8 (6-14) Blood Urea Nitrogen 12 mg/dL (7-20) Creatinine 1.0 mg/dL (0.6-1.0) Estimated GFR (Cockcroft-Gault) 67.1 BUN/Creatinine Ratio 12 (6-20) Glucose Level 103 mg/dL (70-99) H Calcium Level 9.2 mg/dL (8.5-10.1) Magnesium Level 1.6 mg/dL (1.8-2.4) L Total Bilirubin 0.8 mg/dL (0.2-1.0) Aspartate Amino Transferase (AST) 9 U/L (15-37) L Alanine Aminotransferase (ALT) 6 U/L (14-59) L Alkaline Phosphatase 69 U/L (46-116) Creatine Kinase 35 U/L (26-192) Troponin I Quantitative < 0.017 ng/mL (0.000-0.055) EG-Xlm-R-Type Natriuretic Peptide 54 pg/mL (0-124) Total Protein 6.7 g/dL (6.4-8.2) Albumin 3.3 g/dL (3.4-5.0) L Albumin/Globulin Ratio 1.0 (1.0-1.7) Lipase 100 U/L (73-393) Laboratory Tests 10/25/19 08:03 Laboratory Tests 10/25/19 08:03 EKG EKG EKG interpreted by me. EKG at 0 742 showed normal sinus rhythm at rate of 68, left fourth axis, T-wave abnormality inferiorly, no acute ST and T-wave elevation. Radiology/Procedures Radiology/[place] [id number] IMAGING REPORT Signed PATIENT: JANESSA VARELA ACCOUNT: [id number] : 1955 LOCATION: ER AGE: 64 SEX: F EXAM STATUS: PRE ER ORD. PHYSICIAN: LYNNE ANDERSON MD REASON: chest pain, HIGH BLOOD PRESSURE AND HEADACHE PROCEDURE: PORTABLE CHEST 1V PORTABLE CHEST 1V History: Chest pain hypertension. Headache. Comparison: April 17, 2019 Findings: No consolidation or pleural effusion. Normal heart size. No pneumothorax. Impression: 1. No acute cardiopulmonary process. Electronically signed by: Pal Dumont DO (10/25/2019 8:16 AM) [facility] DICTATED and SIGNED BY: PAL DUMONT DO DATE: 10/25/[address] [place] [address] [id number] IMAGING REPORT Signed PATIENT: JANESSA VARELA ACCOUNT: [id number] : 1955 LOCATION: ER AGE: 64 SEX: F EXAM STATUS: PRE ER ORD. PHYSICIAN: LYNNE ANDERSON MD REASON: headache PROCEDURE: CT HEAD WO CONTRAST CT HEAD WO CONTRAST History: Headache Comparison: April 19, 2017 Technique: Noncontrast CT imaging was performed of the head. Exposure: One or more of the following individualized dose reduction techniques were utilized for this examination: 1. Automated exposure control 2. Adjustment of the mA and/or kV according to patient size 3. Use of iterative reconstruction technique. Findings: No acute extra-axial or parenchymal hemorrhage is identified. There is no significant intra-axial mass effect, midline shift, or extra-axial fluid collection. The christian-white differentiation of the major vascular territories is preserved. The ventricles, sulci, and cisterns are within normal limits in size and configuration. The mastoid air cells and the visualized paranasal sinuses are aerated. No acute calvarial abnormality is identified. Impression: 1. No acute intracranial abnormality is identified. Electronically signed by: Prashant Weathers MD (10/25/2019 8:33 AM) [facility] DICTATED and SIGNED BY: PRASHANT WEATHERS MD DATE: 10/25/19 0833 Course & Med Decision Making Course & Med Decision Making Pertinent Labs and Imaging studies reviewed. (See chart for details) Evaluation of patient in ER showed 64-year-old male patient with complaining of several days of chest pain and headache. Patient had unremarkable physical exam and labs and felt better with treatment in ER. Patient ambulated without pro blem. I've spoken with the patient and/or caregivers. I've explained the patient's condition, diagnosis and treatment plan based on information available to me at this time. I've answered the patient's and/or caregivers questions and addressed any concerns. The patient and/or caregivers have a good understanding the patient's diagnosis, condition and treatment plan as can be expected at this point. Vital signs have been stabilized. The patient's condition is stable for discharge from the emergency department. The patient will pursue further outpatient evaluation with her primary care provider or other designated consulting physician as outlined in the discharge instructions. Patient and/or caregivers are agreeable to this plan of care and follow-up instructions have been explained in detail. The patient and/or caregivers have received these instructions in written format and expressed understanding of these discharge instructions. The patient and her caregivers are aware that if any significant change in condition or worsening of symptoms should prompt him to immediately return to this of the closest emergency department. If an emergent department is not readily available I would encourage him to call 911. [place] Disclaimer Mindion Disclaimer This electronic medical record was generated, in whole or in part, using a voice recognition dictation system. Departure Departure Impression: Primary Impression: Musculoskeletal chest pain Additional Impressions: Hypomagnesemia Tension headache Morbid obesity with BMI of 40.0-44.9, adult Disposition: HOME, SELF-CARE (at 0930) Condition: IMPROVED Referrals: NON,STAFF (PCP) Patient Instructions: Chest Wall Pain, Hypomagnesemia, Tension Headache Additional Instructions: Drink plenty of liquids Follow-up with your primary care physician in 3-5 days Return to ER if not getting better Apply ice on your chest wall Continue home pain medication Thank you for visiting [facility]. We appreciate you trusting us with your care. If any additional problems come up don't hesitate to return to visit us. Please follow up with your primary care provider so they can plan additional care if needed and know about the problem that you had. If symptoms worsen come back to the Emergency Department. Any concerning symptoms that start such as chest pain, shortness of air, weakness or numbness on one side of the body, running high fevers or any other concerning symptoms return to the ER. Scripts Cyclobenzaprine Hcl (CYCLOBENZAPRINE HCL) 10 Mg Tablet 1 TAB PO TID, #21 TAB Prov: LYNNE ANDERSON MD 10/25/19 Problem Qualifiers LYNNE ANDERSON MD Oct 25, 2019 09:03
[2019-10-25] MEDS ORDERED: MORPHINE SULFATE 4 MG/ML VIAL. IV ONE (09:15)
[2019-10-25 09:40] VITALS: BP 133/73
[2019-10-25] MEDS ORDERED: CYCL10TA2 PO (09:42)
[2019-10-25] MEDS ORDERED: MAGNESIUM OXIDE 400 MG TABLET PO ONE (09:45)
--- NOTE | 2019-10-25 16:51 | EKG ---
[facility] [address] [place] [address] Test Date: 2019-10-25 Test Time: 07:43:03 Pat Name: JANESSA VARELA Department: Room: Gender: F Change Attendant: : 1955 Requested By: LYNNE ANDERSON Order Number: [id number] Reading MD: Measurements Intervals [place] Rate: 68 P: 43 OR: 190 QRS: -12 QRSD: 82 T: 1 QT: 364 QTc: 391 Interpretive Statements SINUS RHYTHM LEFTWARD AXIS T ABNORMALITY IN INFERIOR LEADS ABNORMAL ECG No previous ECG available for comparison
== END 2019-10-25 09:49 | disposition home or self-care (01) ==
LOC: ER 07:38
DX: R07.89 Other chest pain (principal); E83.42 Hypomagnesemia; G44.209 Tension-type headache, unspecified, not intractable; E66.01 Morbid (severe) obesity due to excess calories; F41.9 Anxiety disorder, unspecified; M19.90 Unspecified osteoarthritis, unspecified site; E11.9 Type 2 diabetes mellitus without complications; K21.9 Gastro-esophageal reflux disease without esophagitis; E78.00 Pure hypercholesterolemia, unspecified; I10 Essential (primary) hypertension; E03.9 Hypothyroidism, unspecified; G89.29 Other chronic pain; Z87.442 Personal history of urinary calculi; Z90.49 Acquired absence of other specified parts of digestive tract; Z98.51 Tubal ligation status; Z68.42 Body mass index [BMI] 45.0-49.9, adult; Z98.890 Other specified postprocedural states; Z88.8 Allergy status to other drugs, medicaments and biological substances
CPT/HCPCS: 36415; 70450; 71045; 80053; 82550; 83690; 83735; 83880; 84484; 85025; 85610; 93005; 99285

== ENCOUNTER 2020-08-02 09:10 | Emergency (ER) | payer MEDICARE, MEDICAID ==
[~2020-08-02] VITALS: Ht 160 cm; Wt 119.0 kg
[~2020-08-02 09:10] MED LIST changes: +AMLO-186 PO; +AMLO-187 PO; -AMLO10TA8 PO; -AMLO5TAB10 PO
--- NOTE | 2020-08-02 09:53 | PHYS DOC ---
Past Medical History Past Medical History: Anxiety, Arthritis, Diabetes-Type II, GERD, High Ch olesterol, Hypertension, Hypothyroid, Urolithiasis, Other Additional Past Medical Histor: TONYA-uses CPAP, ciatica, CHRONIC BACK PAIN Past Surgical History: Cholecystectomy, Tubal ligation Additional Past Surgical Histo: THYROIDECTOMY, PARTIAL HYST, HERNIA Smoking Status: Never Smoker Alcohol Use: None Drug Use: None General Adult EDM: Chief Complaint: COUGH HPI: HPI: P history obtained from patient. Patient is a six 5-year-old female with obstructive sleep apnea, hypertension, hyperlipidemia, GERD who presents with chief complaint of intermittent wheezing over the past 3 weeks. She notes she has had dry cough over the past 3 weeks. She does note some left lower chest pain but is only present when she coughs. Denies any sputum production. Denies fevers. Note she was evaluated by telehealth physician and prescribed doxycycline which she is currently taking. She states this has not helped her symptoms. Denies any history of wheezing or history of asthma or COPD. States she has been trying an inhaler at home every 6 hours with minimal relief. Has not taken steroids because she states this elevates her blood pressure. Denies tobacco abuse. Denies exertional chest pain. Denies shortness of breath. Denies syncope. States the wheezing is worse when she tries to lay down. Denies increased extremity swelling or unexplained weight gain. Does note she is been tested for Covid recently and was negative. Review of Systems: Review of Systems: Constitutional: Denies fever or chills. [] Eyes: Denies change in visual acuity. [] HENT: Denies nasal congestion or sore throat. [] Respiratory: Positive for cough and wheeze Cardiovascular: Denies chest pain or edema. [] GI: Denies abdominal pain, nausea, vomiting, bloody stools or diarrhea. [] : Denies dysuria. [] Musculoskeletal: Denies back pain or joint pain. [] Integument: Denies rash. [] Neurologic: Denies headache, focal weakness or sensory changes. [] Endocrine: Denies polyuria or polydipsia. [] Lymphatic: Denies swollen glands. [] Psychiatric: Denies depression or anxiety. [] Heart Score: Risk Factors: Risk Factors: DM, Current or recent (<one month) smoker, HTN, HLP, family history of CAD, obesity. Risk Scores: Score 0 - 3: 2.5% MACE over next 6 weeks - Discharge Home Score 4 - 6: 20.3% MACE over next 6 weeks - Admit for Clinical Observation Score 7 - 10: 72.7% MACE over next 6 weeks - Early Invasive Strategies Allergies: Allergies: Allergies Coded Allergies Type Severity Reaction Last Updated Verified No Known Medication Allergies Allergy Unknown 10/25/19 Yes prednisone Adverse Reaction Intermediate 01/19/15 Yes Physical Exam: PE: Constitutional: Well developed, well nourished, no acute distress, non-toxic appearance. [] HENT: Normocephalic, atraumatic, bilateral external ears normal, oropharynx moist, no oral exudates, nose normal. [] Eyes: PERRLA, EOMI, conjunctiva normal, no discharge. [] Neck: Normal range of motion, no tenderness, supple, no stridor. [] Cardiovascular:Heart rate regular rhythm, no murmur [] Lungs & Thorax: Bilateral breath sounds clear to auscultation sitting upright and supine. [] Abdomen: soft, no tenderness, no masses, no pulsatile masses. [] Skin: Warm, dry, no erythema, no rash. [] Back: No tenderness, no CVA tenderness. [] Extremities: No tenderness, no cyanosis, no clubbing, ROM intact, no edema. [] Neurologic: Alert and oriented X 3, normal motor function, normal sensory function, no focal deficits noted. [] Psychologic: Affect normal, judgement normal, mood normal. [] Current Patient Data: Labs: Laboratory Tests Test 08/02/20 09:45 White Blood Count 6.6 x10^3/uL Red Blood Count 4.17 x10^6/uL Hemoglobin 12.8 g/dL Hematocrit 37.8 % Mean Corpuscular Volume 91 fL Mean Corpuscular Hemoglobin 31 pg Mean Corpuscular Hemoglobin Concent 34 g/dL Red Cell Distribution Width 14.1 % Platelet Count 328 x10^3/uL Neutrophils (%) (Auto) 58 % Lymphocytes (%) (Auto) 24 % Monocytes (%) (Auto) 7 % Eosinophils (%) (Auto) 10 % Basophils (%) (Auto) 1 % Neutrophils # (Auto) 3.8 x10^3/uL Lymphocytes # (Auto) 1.6 x10^3/uL Monocytes # (Auto) 0.5 x10^3/uL Eosinophils # (Auto) 0.7 x10^3/uL Basophils # (Auto) 0.0 x10^3/uL Sodium Level 141 mmol/L Potassium Level 3.9 mmol/L Chloride Level 104 mmol/L Carbon Dioxide Level 28 mmol/L Anion Gap 9 Blood Urea Nitrogen 11 mg/dL Creatinine 0.9 mg/dL Estimated GFR (Cockcroft-Gault) 75.6 Glucose Level 106 mg/dL Calcium Level 9.4 mg/dL Troponin I Quantitative < 0.017 ng/mL CT-Lnm-L-Type Natriuretic Peptide 29 pg/mL Current Medications Medications (Trade) Dose Ordered Sig/Erika Route PRN Reason Start Time Stop Time Status Last Admin Dose Admin Albuterol/ Ipratropium (Duoneb) 9 ml 1X ONCE NEB 08/02/20 10:00 08/02/20 10:01 DC 08/02/20 10:11 Benzonatate (Tessalon Perle) 100 mg 1X ONCE PO 08/02/20 10:00 08/02/20 10:01 DC Amoxicillin/ Clavulanate Potassium (Augmentin 875/ 125mg) 1 tab 1X ONCE PO 08/02/20 10:45 08/02/20 10:46 Vital Signs: Vital Signs Date Time Temp Pulse Resp B/P (MAP) Pulse Ox O2 Delivery O2 Flow Rate FiO2 08/02/20 10:22 98 Room Air 08/02/20 09:25 98.3 93 26 159/101 (120) 98 Room Air 98.3 EKG: EKG: [] EKG consistent with normal sinus rhythm. Ventricular rate of 81 bpm. Left axis noted. Flipped T waves noted in lead III. Intervals normal. PVC present. Nonspecific EKG. Radiology/Procedures: Radiology/Procedures: [facility] [address] [place] [address] IMAGING REPORT Signed PATIENT: JANESSA VARELA ACCOUNT: [id number] : 1955 LOCATION: ER AGE: 65 SEX: F EXAM STATUS: REG ER ORD. PHYSICIAN: RADHA MART DO REASON: cough PROCEDURE: CHEST AP ONLY AP chest. HISTORY: Cough AP view was taken of the chest. Patient's taken a poor inspiration. There is mild arthritis in the shoulders. There is no pleural effusion. Heart is upper normal in size. There is atelectasis or infiltrate in the right upper lobe along the minor fissure. IMPRESSION: 1. Mild right upper lobe atelectasis or infiltrate. 2. Poor inspiration. Electronically signed by: Zafar Montes MD (08/02/2020 10:09 AM) [id number] DICTATED and SIGNED BY: ZAFAR MONTES MD DATE: 08/02/20 1009 [] Course & Med Decision Making: Course & Med Decision Making Pertinent Labs and Imaging studies reviewed. (See chart for details) [] Patient is a pleasant 65-year-old female who presents with complaint of cough and wheeze over the past 3 weeks. Initial vital signs unremarkable. EKG had acute ischemic changes. Basic labs were obtained given her underlying comorbidities. Troponin negative. Chest x-ray does show potential consolidation in the right upper lobe. She is currently taking doxycycline. She was given breathing treatments and did state relief. On auscultation her lungs are clear to auscultation bilaterally. Nontachypneic. Not hypoxic. Overall very low suspicion for pulmonary embolism. Patient symptoms not consistent with ACS. Given her underlying history of diabetes Augmentin will be added in addition to her oral doxycycline. She was also offered a short course of steroids given her report of wheeze however the patient is declining. She d oes have full inhaler at home. She was instructed to follow-up with her primary care physician in the next 2 days. Strict return precautions were discussed and understood. Patient is agreeable to this plan. She was ambulated and showed no signs of hypoxia. Stable for discharge home. Dragon Disclaimer: Dragon Disclaimer: This electronic medical record was generated, in whole or in part, using a voice recognition dictation system. Departure Departure Impression: Primary Impression: Cough Disposition: 01 DC HOME SELF CARE/HOMELESS Condition: STABLE Referrals: MALENA DAVENPORT (PCP) Patient Instructions: Cough, Adult Additional Instructions: Please follow-up with your primary care physician in the next 2 to 3 days. Scripts Benzonatate (TESSALON PERLE) 100 Mg Capsule 100 MG PO TID PRN for COUGH for 4 Days, #12 CAP Prov: RADHA MART DO 08/02/20 Amoxicillin/Potassium Clav (AUGMENTIN 875-125 TABLET) 1 Each Tablet 1 TAB PO BID for 7 Days, #14 TAB 0 Refills Prov: RADHA MART DO 08/02/20 RADHA MART DO Aug 02, 2020 09:53
[2020-08-02 10:00] LABS: BASO % 1 % (0-3); EOS # 0.7 x10^3/uL (0.0-0.7); EOS % 10 % (0-3); HEMATOCRIT 37.8 % (36.0-47.0); HEMOGLOBIN 12.8 g/dL (12.0-15.5); LYMPH # 1.6 x10^3/uL (1.0-4.8); LYMPH % 24 % (24-48); MEAN CORPUSCULAR HEMOGLOBIN 31 pg (25-35); MEAN CORPUSCULAR HGB CONC 34 g/dL (31-37); MEAN CORPUSCULAR VOLUME 91 fL (79-100); MONO # 0.5 x10^3/uL (0.0-1.1); MONO % 7 % (0-9); NEUT # 3.8 x10^3/uL (1.8-7.7); NEUT % 58 % (31-73); PLATELET COUNT 328 x10^3/uL (140-400); RED BLOOD COUNT 4.17 x10^6/uL (3.50-5.40); RED CELL DISTRIBUTION WIDTH 14.1 % (11.5-14.5); WHITE BLOOD COUNT 6.6 x10^3/uL (4.0-11.0)
[2020-08-02] MEDS ORDERED: BENZONATATE 100 MG CAPSULE. PO ONE (10:00)
[2020-08-02] MEDS ORDERED: IPRATRPIUM/ALBUTEROL 0.5/2.5MG 3 ML NEBU. NEB ONE (10:00)
[2020-08-02 10:11] LABS: CALCIUM 9.4 mg/dL (8.5-10.1); CREATININE 0.9 mg/dL (0.6-1.0); GFR 75.6; POTASSIUM 3.9 mmol/L (3.5-5.1)
--- NOTE | 2020-08-02 10:12 | RAD ---
AP chest. HISTORY: Cough AP view was taken of the chest. Patient's taken a poor inspiration. There is mild arthritis in the shoulders. There is no pleural effusion. Heart is upper normal in size. There is atelectasis or infiltrate in the right upper lobe along the minor fissure. IMPRESSION: 1. Mild right upper lobe atelectasis or infiltrate. 2. Poor inspiration. Electronically signed by: Zafar Montes MD (08/02/2020 10:09 AM) [id number]
[2020-08-02 10:28] VITALS: BP 157/80
[2020-08-02] MEDS ORDERED: BENZ100C PO (10:44)
[2020-08-02] MEDS ORDERED: AMOX1TAB61 PO (10:44)
[2020-08-02] MEDS ORDERED: AMOXICILLIN/K CLAV 875/125MG TABLET. PO ONE (10:45)
== END 2020-08-02 11:25 | disposition home or self-care (01) ==
LOC: ER 09:10
DX: R05 Cough (principal); R07.89 Other chest pain; F41.9 Anxiety disorder, unspecified; M19.90 Unspecified osteoarthritis, unspecified site; E78.00 Pure hypercholesterolemia, unspecified; K21.9 Gastro-esophageal reflux disease without esophagitis; E03.9 Hypothyroidism, unspecified; G89.29 Other chronic pain; I10 Essential (primary) hypertension; Z90.49 Acquired absence of other specified parts of digestive tract; Z98.51 Tubal ligation status; Z98.890 Other specified postprocedural states; Z88.8 Allergy status to other drugs, medicaments and biological substances
CPT/HCPCS: 36415; 71045; 80048; 83880; 84484; 85025; 94640; 99285

== ENCOUNTER 2021-08-01 10:11 | Emergency (ER) | payer MEDICARE, MEDICAID ==
[~2021-08-01] VITALS: Ht 167.6 cm; Wt 130.0 kg
[~2021-08-01 10:11] MED LIST changes: +AMOX1TAB61 PO; +BENZ100C PO; +CYCL10TA19 PO; -CYCL10TA2 PO; +POTA-116 PO; -POTA10TA12 PO
--- NOTE | 2021-08-01 10:26 | PHYS DOC ---
Past Medical History Past Medical History: Anxiety, Arthritis, Diabetes-Type II, GERD, High Ch olesterol, Hypertension, Hypothyroid, Urolithiasis, Other Additional Past Medical Histor: TONYA-uses CPAP, ciatica, CHRONIC BACK PAIN Past Surgical History: Hysterectomy, Other Additional Past Surgical Histo: hernia repair, thyroidectomy Smoking Status: Never Smoker Alcohol Use: None Drug Use: None General Adult EDM: Chief Complaint: ABDOMINAL PAIN HPI: HPI: Patient is a 66 year old female who presents here with 1 week history of generalized abdominal pain and back pain. She reports nausea without vomiting. She does report some postprandial pain, with both food and water intake. No specific foods exacerbate her pain. The pain has been progressive over the last week, no real change today. She contacted her primary care doctor's office to be seen, and they recommended she go to the ER. She denies constipation or diarrhea. She denies chest pain or dyspnea. She denies urinary symptoms. She denies melena or hematochezia. She has had a previous cholecystectomy and hysterectomy. She denies any prior history of bowel obstruction. Review of Systems: Review of Systems: Constitutional: Denies fever or chills. [] HENT: Denies nasal congestion or sore throat. [] Respiratory: Denies cough or shortness of breath. [] Cardiovascular: Denies chest pain or edema. [] GI: Reports abdominal pain and nausea. Denies vomiting. Denies constipation or diarrhea. Denies melena or hematochezia. : Denies any urinary symptoms. Musculoskeletal: Reports diffuse back pain. Denies joint pain or swelling. Integument: Denies rash. [] Neurologic: Denies headache, focal weakness or sensory changes. [] Psychiatric: Denies depression or anxiety. [] Heart Score: C/O Chest Pain: No Risk Factors: Risk Factors: DM, Current or recent (<one month) smoker, HTN, HLP, family hist ory of CAD, obesity. Risk Scores: Score 0 - 3: 2.5% MACE over next 6 weeks - Discharge Home Score 4 - 6: 20.3% MACE over next 6 weeks - Admit for Clinical Observation Score 7 - 10: 72.7% MACE over next 6 weeks - Early Invasive Strategies Allergies: Allergies: Allergies Coded Allergies Type Severity Reaction Last Updated Verified pregabalin Allergy Unknown 08/01/21 Yes prednisone Adverse Reaction Intermediate 08/01/21 Yes Uncoded Allergies Type Severity Reaction Last Updated Verified AMITRYPTALINE Allergy Unknown 08/01/21 Physical Exam: PE: Constitutional: Well developed, well nourished, no acute distress, non-toxic appearance. She does appear to be uncomfortable. HENT: Normocephalic, atraumatic, mucous membranes are moist. Eyes: Sclera are clear and anicteric. Neck: Normal range of motion, no tenderness, supple, trachea midline. Cardiovascular:Heart rate regular rhythm, +2 radial and posterior tibial pulses bilaterally. Lungs & Thorax: Bilateral breath sounds clear to auscultation [] Abdomen: Abdomen is obese, soft, nondistended, normal bowel sounds, mild epigastric and periumbilical tenderness to palpation, mild voluntary guarding, no rebound tenderness. No CVA tenderness. No flank or abdominal ecchymoses. No palpable mass organomegaly. No palpable pulsatile mass. No audible bruit. Skin: Warm, dry, no erythema, no rash. No jaundice. Back: No tenderness, no CVA tenderness. [] Extremities: No tenderness, no cyanosis, no clubbing, ROM intact, no edema. [] Neurologic: Alert and oriented X 3, normal motor function, normal sensory function, no focal deficits noted. [] Psychologic: Affect normal, judgement normal, mood normal. She is pleasant cooperative. Current Patient Data: Vital Signs: Vital Signs Date Time Temp Pulse Resp B/P (MAP) Pulse Ox O2 Delivery O2 Flow Rate FiO2 08/01/21 10:22 98.5 83 15 172/103 (126) 98 Room Air 98.5 EKG: EKG: [] Radiology/Procedures: Radiology/Procedures: IMAGING REPORT Signed PATIENT: JANESSA VARELA ACCOUNT: [id number] : 1955 LOCATION: ER AGE: 66 SEX: F EXAM STATUS: PRE ER ORD. PHYSICIAN: ILA CUADRA DO REASON: abdominal pain PROCEDURE: CT ABD PELV W/ IV CONTRST ONLY CT ABDOMEN+PELVIS W History: Abdominal pain Comparison: CT abdomen and pelvis 08/03/2015. Technique: CT of the abdomen and pelvis with intravenous contrast. Findings: Mild dependent changes in the right lower lobe. No pleural effusion. Subcentimeter hypodensity in the anterior left hepatic lobe unchanged from 2015, likely cyst or hemangioma. Status post cholecystectomy. The pancreas, spleen, and adrenals are unremarkable. There is a left renal upper pole peripheral hy podensity too small to completely characterize, likely simple cyst. No hydronephrosis or nephrolithiasis. The stomach and small bowel are unremarkable. Normal appendix. Mild descending colonic diverticulosis without evidence for diverticulitis. The bladder is unremarkable. Postsurgical changes from hysterectomy. Abdominopelvic vasculature is unremarkable. No intra-abdominal free air or free fluid. There is an umbilical hernia containing peritoneal fat and fluid with mild adjacent inflammatory changes. Hernia neck measures 1.4 x 1.5 cm. Hernia sac measures 4.8 x 3.3 x 3.9 cm. This has enlarged from 2015 comparison. Multilevel degenerative disc and facet disease of the lumbar spine with bilateral L5-S1 neural foraminal stenosis on the basis of facet hypertrophy and disc space narrowing. Impression: 1. Moderate umbilical hernia containing fat and a small fluid collection with mild adjacent inflammatory changes, enlarged from 2015. 2. Degenerative disease of the lumbar spine at L5-S1 with bilateral osseous neural foraminal stenosis. Correlate for radiculopathy. 3. Mild diverticulosis without evidence of diverticulitis. ------ Exposure: One or more of the following individualized dose reduction techniques were utilized for this examination: 1. Automated exposure control 2. Adjustment of the mA and/or kV according to patient size 3. Use of iterative reconstruction technique. Electronically signed by: Maurice Dominguez MD (08/01/2021 12:43 PM) [id number] DICTATED and SIGNED BY: MAURICE DOMINGUEZ MD DATE: 08/01/21 [id number] 0 Course & Med Decision Making: Course & Med Decision Making Pertinent Labs and Imaging studies reviewed. (See chart for details) IV fluid normal saline bolus given. IV Zofran and IV fentanyl given for pain. The patient is resting very comfortably. She has a benign, nonsurgical abdomi nal exam. No clinical evidence of incarcerated hernia. I have discussed the findings, differential diagnosis and plan of care with her. She has seen a surgeon at for her umbilical hernia previously, and she reports that she would be able to follow-up with them for this. No current indication for further imaging, invasive exams or admission currently. I discussed home care i nstructions. She already takes hydrocodone chronically for her back pain. She is amenable to taking Zofran as needed for nausea symptoms. I recommend she contact her surgeon at today or tomorrow to arrange for close follow-up. I also recommend she follow-up with her primary care physician. Strict return precautions are given. She is comfortable to plan of care, she verbalized understanding of instructions provided. Lico Disclaimer: Lico Disclaimer: This electronic medical record was generated, in whole or in part, using a voice recognition dictation system. Departure Departure Impression: Primary Impression: Generalized abdominal pain Additional Impression: Umbilical hernia Qualified Codes: K42.9 - Umbilical hernia without obstruction or gangrene Disposition: HOME / SELF CARE / HOMELESS Condition: STABLE Referrals: MALENA DAVENPORT (PCP) Patient Instructions: Hernia Additional Instructions: You may take your regularly prescribed pain medication as needed. Use the nausea medicine as needed. Stay well-hydrated. Take stool softeners to avoid constipation. Return to the ER immediately for fever of 100.4 or higher, uncontrolled vomiting, dehydration, more severe pain, if you are unable to pass stool or cannot move your bowels or for any other concerns. Please contact your surgeon at to discuss possible hernia repair surgery. Scripts Ondansetron Hcl (ZOFRAN) 4 Mg Tablet 4 MG PO PRN TID PRN for VOMITING, #20 TAB nausea/vomiting Prov: ILA CUADRA DO 08/01/21 ILA CUADRA DO Aug 01, 2021 10:26
[2021-08-01] MEDS ORDERED: fentaNYL PF VIAL 100 MCG/2 ML VIAL IVP ONE (10:45)
[2021-08-01] MEDS ORDERED: IV NORMAL SALINE 1000ML BAG 1,000 ML IV ONE (10:45)
[2021-08-01] MEDS ORDERED: ONDANSETRON PF 4 MG/2 ML VIAL. IVP ONE (10:45)
[2021-08-01 11:19] LABS: BASO # 0.1 x10^3/uL (0.0-0.2); BASO % 1 % (0-3); EOS # 0.2 x10^3/uL (0.0-0.7); EOS % 4 % (0-3); HEMATOCRIT 38.3 % (36.0-47.0); HEMOGLOBIN 12.9 g/dL (12.0-15.5); LYMPH # 1.9 x10^3/uL (1.0-4.8); LYMPH % 31 % (24-48); MEAN CORPUSCULAR HEMOGLOBIN 31 pg (25-35); MEAN CORPUSCULAR HGB CONC 34 g/dL (31-37); MEAN CORPUSCULAR VOLUME 92 fL (79-100); MONO # 0.4 x10^3/uL (0.0-1.1); MONO % 7 % (0-9); NEUT # 3.5 x10^3/uL (1.8-7.7); NEUT % 58 % (31-73); PLATELET COUNT 328 x10^3/uL (140-400); RED BLOOD COUNT 4.17 x10^6/uL (3.50-5.40); RED CELL DISTRIBUTION WIDTH 13.6 % (11.5-14.5); WHITE BLOOD COUNT 6.1 x10^3/uL (4.0-11.0)
[2021-08-01 11:24] LABS: CALCIUM 9.4 mg/dL (8.5-10.1); CREATININE 1.3 mg/dL (0.6-1.0); GFR 49.3; POTASSIUM 3.5 mmol/L (3.5-5.1)
[2021-08-01 11:30] LABS: ALBUMIN 3.7 g/dL (3.4-5.0); ALBUMIN/GLOBULIN RATIO 0.9 (1.0-1.7); TOTAL BILIRUBIN 0.7 mg/dL (0.2-1.0); TOTAL PROTEIN 7.7 g/dL (6.4-8.2)
[2021-08-01] MEDS ORDERED: IOHEXOL 300 MG/ML 100ML VIAL. IV ONE (11:30)
[2021-08-01] MEDS ORDERED: CONTRAST GIVEN. MC PRN (11:45)
[2021-08-01 12:18] LABS: BILIRUBIN,URINE NEGATIVE (NEG); CLARITY,URINE CLEAR; COLOR,URINE YELLOW; NITRITE,URINE NEGATIVE (NEG); PH,URINE 5.5 (<5.0-8.0); PROTEIN,URINE NEGATIVE (NEG-TRACE); UROBILINOGEN,URINE 0.2 mg/dL (0.2 mg/dL)
[2021-08-01 12:34] LABS: BACTERIA,URINE FEW /HPF (0-FEW); RBC,URINE 0 /HPF (0-2); WBC,URINE OCC /HPF (0-4)
--- NOTE | 2021-08-01 12:46 | RAD ---
CT ABDOMEN+PELVIS W History: Abdominal pain Comparison: CT abdomen and pelvis 08/03/2015. Technique: CT of the abdomen and pelvis with intravenous contrast. Findings: Mild dependent changes in the right lower lobe. No pleural effusion. Subcentimeter hypodensity in the anterior left hepatic lobe unchanged from 2015, likely cyst or heman gioma. Status post cholecystectomy. The pancreas, spleen, and adrenals are unremarkable. There is a l eft renal upper pole peripheral hypodensity too small to completely characterize, likely simple cyst. No hydronephrosis or nephrolithiasis. The stomach and small bowel are unremarkable. Normal appendix. Mild descending colonic diverticulosis without evidence for diverticulitis. The bladder is unremarkable. Postsurgical changes from hysterec ricky. Abdominopelvic vasculature is unremarkable. No intra-abdominal free air or free fluid. There is an um bilical hernia containing peritoneal fat and fluid with mild adjacent inflammatory changes. Hernia ne ck measures 1.4 x 1.5 cm. Hernia sac measures 4.8 x 3.3 x 3.9 cm. This has enlarged from 2015 compari son. Multilevel degenerative disc and facet disease of the lumbar spine with bilateral L5-S1 neural f oraminal stenosis on the basis of facet hypertrophy and disc space narrowing. Impression: 1. Moderate umbilical hernia containing fat and a small fluid collection with mild adjacent inflamma tory changes, enlarged from 2015. 2. Degenerative disease of the lumbar spine at L5-S1 with bilateral osseous neural foraminal stenosi s. Correlate for radiculopathy. 3. Mild diverticulosis without evidence of diverticulitis. ------ Exposure: One or more of the following individualized dose reduction techniques were utilized for thi s examination: 1. Automated exposure control 2. Adjustment of the mA and/or kV according to patient size 3. Use of iterative reconstruction technique. Electronically signed by: Maurice Kennedy MD (08/01/2021 12:43 PM) [id number]
[2021-08-01] MEDS ORDERED: ONDA4TAB7 PO (13:06)
[2021-08-01 13:15] VITALS: BP 137/78
== END 2021-08-01 13:17 | disposition home or self-care (01) ==
LOC: ER 10:11
DX: K42.9 Umbilical hernia without obstruction or gangrene (principal); E11.9 Type 2 diabetes mellitus without complications; K21.9 Gastro-esophageal reflux disease without esophagitis; E78.00 Pure hypercholesterolemia, unspecified; I10 Essential (primary) hypertension; E03.9 Hypothyroidism, unspecified; G89.29 Other chronic pain; Z90.710 Acquired absence of both cervix and uterus; Z98.890 Other specified postprocedural states; Z88.5 Allergy status to narcotic agent; Z88.8 Allergy status to other drugs, medicaments and biological substances
CPT/HCPCS: 36415; 74177; 80053; 81001; 83605; 83690; 85025; 96361; 96374; 96375; 99285; J2405; J3010; J7030; Q9967

== ENCOUNTER 2021-11-03 04:22 | Emergency (ER) | payer MEDICARE, MEDICAID ==
[~2021-11-03] VITALS: Ht 160 cm; Wt 119.0 kg
[~2021-11-03 04:22] MED LIST changes: +ATOR10TA60 PO; +CALC500T54 PO; +HYDR-2769 PO; +LOSA-73 PO; +ONDA4TAB7 PO; +POTA20TA4 PO; +VITA100022 PO
[2021-11-03] MEDS ORDERED: fentaNYL PF VIAL 100 MCG/2 ML VIAL IVP ONE (04:30)
--- NOTE | 2021-11-03 04:33 | PHYS DOC ---
Past Medical History Past Medical History: Anxiety, Arthritis, Diabetes-Type II, GERD, High Ch olesterol, Hypertension, Hypothyroid, Urolithiasis, Other Additional Past Medical Histor: TONYA-uses CPAP, ciatica, CHRONIC BACK PAIN (DONNIE ORANTES DO) Past Surgical History: Hysterectomy, Other Additional Past Surgical Histo: hernia repair, thyroidectomy (DONNIE ORANTES DO) Smoking Status: Never Smoker Alcohol Use: None Drug Use: None (DONNIE ORANTES DO) General Adult EDM: Chief Complaint: FLANK PAIN HPI: HPI: Patient is a 66-year-old female presenting via EMS for right flank pain. Reports feeling similar symptoms several days ago but acutely worsened overnight and awoke her from sleep. Nothing known makes better or worse. Pain is sharp and focal to right flank radiating to suprapubic region. Timing of symptoms has been constant since onset. She has not taken anything in attempt to alleviate her symptoms. Admits she is a dgu-kfekyku-laeoqwcdf diabetic and has thyroid issues, no other reported medical conditions and states she is otherwise been at baseline health. Does disclose she is fully vaccinated against COVID-19 but has had 1 week of generalized fatigue, malaise and subjective fever and chills. (DONNIE ORANTES DO) Review of Systems: Review of Systems: Fourteen body systems of review of systems have been reviewed. See HPI for pertinent positives and negative responses, other spangler all other systems are negative, non-pertinent or non-contributory (DONNIE ORANTES DO) Heart Score: Risk Factors: Risk Factors: DM, Current or recent (<one month) smoker, HTN, HLP, family history of CAD, obesity. Risk Scores: Score 0 - 3: 2.5% MACE over next 6 weeks - Discharge Home Score 4 - 6: 20.3% MACE over next 6 weeks - Admit for Clinical Observation Score 7 - 10: 72.7% MACE over next 6 weeks - Early Invasive Strategies (DONNIE ORANTES DO) C/O Chest Pain: No (ILA CUADRA DO) Allergies: Allergies: Allergies Coded Allergies Type Severity Reaction Last Updated Verified pregabalin Allergy Unknown 08/01/21 Yes prednisone Adverse Reaction Intermediate 08/01/21 Yes Uncoded Allergies Type Severity Reaction Last Updated Verified AMITRYPTALINE Allergy Unknown 08/01/21 (DONNIE ORANTES DO) Physical Exam: PE: Constitutional: Well developed, well nourished, obese, no acute distress, non- toxic appearance. HENT: Normocephalic, atraumatic, bilateral external ears normal, oropharynx mo ist, no oral exudates, nose normal. Eyes: PERRLA, EOMI, conjunctiva normal, no discharge. Neck: Normal range of motion, no tenderness, supple, no stridor. Cardiovascular: Heart rate regular, sinus rhythm, no murmurs rubs or gallops Lungs & Thorax: Bilateral breath sounds clear to auscultation Abdomen: Bowel sounds normal, soft, no tenderness, no masses, no pulsatile masses. Nonsurgical abdomen, no peritoneal signs Skin: Warm, dry, no erythema, no rash. Back: No tenderness, right CVA tenderness. Extremities: No tenderness, no cyanosis, no clubbing, ROM intact, no edema. Neurologic: Alert and oriented X 3, grossly normal motor & sensory function, no focal deficits noted. Psychologic: Anxious affect and mood (DONNIE ORANTES DO) EKG: EKG: EKG ordered and interpreted by myself at 0443 hrs. sinus rhythm at 84 bpm, unremarkable intervals, left axis deviation, no obvious ischemic findings, no STEMI (DONNIE ORANTES DO) Radiology/Procedures: Radiology/Procedures: EXAM: CT ABDOMEN/PELVIS WITHOUT CONTRAST. HISTORY: Right flank pain. TECHNIQUE: Computed tomography of the abdomen and pelvis was performed without intravenous contrast. One or more of the following individualized dose reduction techniques were utilized for this examination: 1. Automated exposure control. 2. Adjustment of the mA and/or kV according to patient size. 3. Use of iterative reconstruction technique. COMPARISON: 08/01/2021. FINDINGS: Lung windows through the visualized portions of the bases reveal multifocal groundglass infiltrates in the left greater than right bases. Bone windows reveal no suspicious lesions. Moderate to severe facet osteoarthritis from L4 through S1, resulting in moderate to severe central canal stenosis. A soft tissue density nodule lateral to the descending colon on image 96 measures 11 mm, is stable, and likely reflects a focus of remote fat necrosis. The appendix is not inflamed. The uterus is surgically absent. There is no small bowel obstruction. A small umbilical hernia contains fat and a small amount of fluid. The gallbladder is surgically absent. The liver, pancreas, adrenal glands, spleen and kidneys are unremarkable without contrast. There are no renal or ureteral calculi. IMPRESSION: 1. No renal or ureteral calculi. 2. Multifocal infiltrates in the bases consistent with atypical pneumonia. 3. Moderate to severe facet osteoarthritis from L4 through S1 results in moderate to severe central canal stenosis. 4. Small umbilical hernia containing fat and a small amount of fluid. Electronically signed by: Vonda Victor MD (11/03/2021 6:06 AM) [id number] (DONNIE ORANTES DO) Radiology/Procedures: IMAGING REPORT Signed PATIENT: JANESSA VARELA ACCOUNT: [id number] : 1955 LOCATION: ER AGE: 66 SEX: F EXAM STATUS: REG ER ORD. PHYSICIAN: DONNIE ORANTES DO REASON: RIGHT FLANK PAIN PROCEDURE: CT ABDOMEN PELVIS WO CONTRAST EXAM: CT ABDOMEN/PELVIS WITHOUT CONTRAST. HISTORY: Right flank pain. TECHNIQUE: Computed tomography of the abdomen and pelvis was performed without intravenous contrast. One or more of the following individualized dose reduction techniques were utilized for this examination: 1. Automated exposure control. 2. Adjustment of the mA and/or kV according to patient size. 3. Use of iterative reconstruction technique. COMPARISON: 08/01/2021. FINDINGS: Lung windows through the visualized portions of the bases reveal mul tifocal groundglass infiltrates in the left greater than right bases. Bone windows reveal no suspicious lesions. Moderate to severe facet osteoarthritis from L4 through S1, resulting in moderate to severe central canal stenosis. A soft tissue density nodule lateral to the descending colon on image 96 measures 11 mm, is stable, and likely reflects a focus of remote fat necrosis. The appendix is not inflamed. The uterus is surgically absent. There is no small bowel obstruction. A small umbilical hernia contains fat and a small amount of fluid. The gallbladder is surgically absent. The liver, pancreas, adrenal glands, spleen and kidneys are unremarkable without contrast. There are no renal or ureteral calculi. IMPRESSION: 1. No renal or ureteral calculi. 2. Multifocal infiltrates in the bases consistent with atypical pneumonia. 3. Moderate to severe facet osteoarthritis from L4 through S1 results in moderate to severe central canal stenosis. 4. Small umbilical hernia containing fat and a small amount of fluid. Electronically signed by: Vonda Victor MD (11/03/2021 6:06 AM) [id number] DICTATED and SIGNED BY: ALAN VICTOR MD DATE: 11/03/21 [id number] (ILA CUADRA DO) Course & Med Decision Making: Course & Med Decision Making ABCs unremarkable HPI and physical exam nonconcerning for any emergent or surgical issues Patient still pending ordered ER work-up results at time of my shift ending. Please defer to Dr. Cuadra's documentation regarding future care of patient while in ER setting (DONNIE ORANTES DO) Course & Med Decision Making This patient was initially seen by Dr. Orantes. Please see his note for details of HPI and H&P. I assumed care at 0600. CT of the abdomen and pelvis is pending at that time. CT returned, no obvious acute surgical or life-threatening processes noted. The patient is resting comfortably. Her vital signs are stable, she manifests no evidence of respiratory distress or hypoxia. She denies chest pain or dyspnea. She is positive for Covid. She has been vaccinated, she had not yet been able to receive a booster. I have discussed all of the findings, differential diagnosis and plan of care with her. No current indication for further invasive exams, imaging or admission based on her current clinical presentation. She has muscle relaxers, pain patches and hydrocodone at home, that she takes daily from her primary care physician/pain management physician. She does not need any refills of her routine medications. I discussed home care instructions, I told her to make sure she gets plenty of rest, take vitamin C and D supplement, take melatonin to help with sleep, make sure she stays well-hydrated. Strict return precautions are given. She verbalizes understanding. (ILA CUADRA DO) Dragon Disclaimer: Lico Disclaimer: This electronic medical record was generated, in whole or in part, using a voice recognition dictation system. (DONNIE ORANTES DO) Departure Departure Impression: Primary Impression: COVID-19 Additional Impression: Flank pain Disposition: HOME / SELF CARE / HOMELESS Condition: STABLE Referrals: KLAUDIA TRUJILLO D.O. (PCP) Patient Instructions: Flank Pain, Myalgia, Adult Additional Instructions: You have been tested for or diagnosed with COVID-19. It is an infection caused by a new type of coronavirus. COVID-19 will cause cold-like or mild flu symptoms in most. It can cause more severe symptoms like problems breathing in some. There is no treatment for COVID-19. The body will clear the infection over time. Self-care will help to ease discomfort. Steps to Take: Self-Care Rest as needed. Healthy habits may help you feel better. Steps include: Choose healthy foods including fruits and vegetables. Drink water throughout the day. Get plenty of sleep each night. If you smoke, try to quit. It may ease breathing. Avoid alcohol. Keep Others Healthy The virus can spread to others. Droplets are released every time you sneeze or cough. The droplets can get into the mouth, nose, or eyes of people near you and lead to infection. To lower the chances of spreading COVID-19 to others: Stay at home until your doctor has said it is safe to leave. If you tested positive this will mean staying isolated until both of the following are true: At least 7 days have passed since the start of illness. You are free of fever for at least 72 hours without the use of medicine. During this time: - Avoid public areas, events, or transportation. Do not return to work or school until your doctor has said it is safe to do so. - Call ahead if you need to go to a medical center. Let them know you may have COVID-19. It will help them guide you where to go. They may also ask you to wear a facemask when you come to the office. - If you call for emergency medical services, let them know you may have COVID- 19. While at home: - Try to avoid close contact with others. Stay about 6 feet away. - If possible, spend most of your time in a separate room from others. - Use a face mask if you will be in close contact with others such as sharing a room or vehicle. - Have someone wipe down common surfaces in the home. Use household physician surgeon every day on areas like doorknobs, counters, or sinks. - Cough or sneeze into a tissue. Throw the tissue away right after use. If a tissue is not available, cough or sneeze into your elbow. - Wash your hands often. Wash them after sneezing or coughing. Use soap and water and wash for at least 20 seconds. Alcohol based hand glass mould cleaner can be used if soap and water is not available. - Do not prepare food for others. Avoid sharing personal items like forks, spoons, or toothbrushes. - Avoid close contact with pets while you are sick. There is no evidence of the virus passing to pets. This is a safety step until more is known about this virus. Isolation can be frustrating. Social interaction can help. Keep in touch with friends and family through phone and tech options. You can still interact with others in your home, just keep a safe distance of about 6 feet. Follow-up: Your doctors office will check in with you to see if there are any changes in your health. You may be asked to keep track of symptoms to share with them. They will also let you know when you are clear to be in public again. Problems to Look Out For: Contact your doctor if your recovery is not going as you expect. Get emergency care if you have problems such as: - Trouble breathing - Nonstop chest pain or pressure - Changes in awareness, confusion, or problems waking - Lips or face have bluish color - Worsening of symptoms If you think you have an emergency, call for emergency medical services right away. As taken from [email or web address] Your pain may be related to your current COVID-19 infection. Take your regularl y prescribed medications as needed/as directed. Make sure you stay hydrated, drink plenty of fluids. Make sure to take vitamin C and vitamin D supplements. You may take melatonin to help with sleep. Return for chest pain, shortness of breath, severe abdominal pain, uncontrolled vomiting, dehydration or any other concerns. Your potassium was 3.4 here today, 3.5 is normal, there is no indication to give you further supplements at this time, make sure you eat a healthy diet. Follow-up with your primary care physician and pain management physician. DONNIE ORANTES DO Nov 03, 2021 04:33 ILA CUADRA DO Nov 03, 2021 07:05
[2021-11-03 06:01] LABS: BASO # 0.1 x10^3/uL (0.0-0.2); BASO % 1 % (0-3); EOS # 0.1 x10^3/uL (0.0-0.7); EOS % 1 % (0-3); HEMOGLOBIN 12.2 g/dL (12.0-15.5); LYMPH # 1.4 x10^3/uL (1.0-4.8); LYMPH % 21 % (24-48); MEAN CORPUSCULAR HEMOGLOBIN 31 pg (25-35); MEAN CORPUSCULAR HGB CONC 34 g/dL (31-37); MEAN CORPUSCULAR VOLUME 92 fL (79-100); MONO # 0.5 x10^3/uL (0.0-1.1); MONO % 8 % (0-9); NEUT # 4.5 x10^3/uL (1.8-7.7); NEUT % 69 % (31-73); PLATELET COUNT 257 x10^3/uL (140-400); RED BLOOD COUNT 3.91 x10^6/uL (3.50-5.40); RED CELL DISTRIBUTION WIDTH 13.9 % (11.5-14.5); WHITE BLOOD COUNT 6.5 x10^3/uL (4.0-11.0)
--- NOTE | 2021-11-03 06:09 | RAD ---
EXAM: CT ABDOMEN/PELVIS WITHOUT CONTRAST. HISTORY: Right flank pain. TECHNIQUE: Computed tomography of the abdomen and pelvis was performed without intravenous contrast. One or more of the following individualized dose reduction techniques were utilized for this examinat ion: 1. Automated exposure control. 2. Adjustment of the mA and/or kV according to patient size. 3. Use of iterative reconstruction technique. COMPARISON: 08/01/2021. FINDINGS: Lung windows through the visualized portions of the bases reveal multifocal groundglass inf iltrates in the left greater than right bases. Bone windows reveal no suspicious lesions. Moderate to severe facet osteoarthritis from L4 through S1, resulting in moderate to severe central canal stenos is. A soft tissue density nodule lateral to the descending colon on image 96 measures 11 mm, is stable, a nd likely reflects a focus of remote fat necrosis. The appendix is not inflamed. The uterus is surgic ally absent. There is no small bowel obstruction. A small umbilical hernia contains fat and a small a mount of fluid. The gallbladder is surgically absent. The liver, pancreas, adrenal glands, spleen and kidneys are unr emarkable without contrast. There are no renal or ureteral calculi. IMPRESSION: 1. No renal or ureteral calculi. 2. Multifocal infiltrates in the bases consistent with atypical pneumonia. 3. Moderate to severe facet osteoarthritis from L4 through S1 results in moderate to severe central c anal stenosis. 4. Small umbilical hernia containing fat and a small amount of fluid. Electronically signed by: Vonda Victor MD (11/03/2021 6:06 AM) [id number]
[2021-11-03 06:21] LABS: CALCIUM 8.1 mg/dL (8.5-10.1); CREATININE 1.4 mg/dL (0.6-1.0); GFR 45.2; POTASSIUM 3.4 mmol/L (3.5-5.1)
[2021-11-03 06:24] LABS: ALBUMIN 3.2 g/dL (3.4-5.0); ALBUMIN/GLOBULIN RATIO 0.8 (1.0-1.7); TOTAL BILIRUBIN 0.9 mg/dL (0.2-1.0); TOTAL PROTEIN 7.1 g/dL (6.4-8.2)
[2021-11-03 06:26] LABS: BILIRUBIN,URINE NEGATIVE (NEG); CLARITY,URINE CLEAR; COLOR,URINE YELLOW; NITRITE,URINE NEGATIVE (NEG); PH,URINE 5.5 (<5.0-8.0); PROTEIN,URINE NEGATIVE (NEG-TRACE); UROBILINOGEN,URINE 0.2 mg/dL (0.2 mg/dL)
[2021-11-03 06:45] LABS: RBC,URINE 0 /HPF (0-2); WBC,URINE OCC /HPF (0-4)
[2021-11-03 06:46] LABS: BACTERIA,URINE 0 /HPF (0-FEW)
[2021-11-03 06:58] VITALS: BP 105/57
--- NOTE | 2021-11-03 08:59 | EKG ---
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
== END 2021-11-03 07:30 | disposition home or self-care (01) ==
LOC: ER 04:22
DX: U07.1 COVID-19 (principal); R10.31 Right lower quadrant pain; E11.9 Type 2 diabetes mellitus without complications; K21.9 Gastro-esophageal reflux disease without esophagitis; E78.00 Pure hypercholesterolemia, unspecified; I10 Essential (primary) hypertension; E03.9 Hypothyroidism, unspecified; G89.29 Other chronic pain; Z90.710 Acquired absence of both cervix and uterus; Z98.890 Other specified postprocedural states; Z88.5 Allergy status to narcotic agent; Z88.8 Allergy status to other drugs, medicaments and biological substances
CPT/HCPCS: 36415; 74176; 80053; 81001; 83690; 84484; 85025; 87426; 93005; 96374; 99285; J3010